=== PATIENT | male | born 1980 | race Caucasian/White ===

== ENCOUNTER 2021-04-02 08:14 | Inpatient (IN) | payer BC, SELFPAY ==
[2021-04-02] VITALS (7 sets, daily range): BP systolic 139–158; BP diastolic 92–101; PULSE 115–131; RESP 16–20; TEMP 36.6–37.4; O2SAT 96–100
--- NOTE | ~2021-04-02 | CT_ITS ---
EXAMINATION: CT abdomen pelvis w con DATE: 04/02/2021 10:19 INDICATION: Pancreatitis TECHNIQUE: Computed tomography (CT) of the abdomen and pelvis was performed with 100 cc Omnipaque 350 intravenous contrast. Automated exposure control and iterative reconstruction technique were employe d. Exam dose: 635.86 mGy-cm total exam DLP. COMPARISON: None. FINDINGS: The lung bases are clear. Normal heart size. No pericardial or pleural effusion. Small sliding hiatal hernia. There is splenomegaly, spleen measuring up to approximately 16 cm maximal vertical dimension. Varices are noted in the paraesophageal area and abdomen. Up to 2.7 x 4 cm cystic lesion of the body of the pancreas. There is prominent betsy-pancreatic and p araduodenal fluid. There are irregular branching fluid collections which are apparently dissecting into the periportal a beckie of the liver and caudate process, likely developing hepatic pseudocysts. There is thickening of the gastric wall and duodenum and duodenal mild dilatation. There is mild fluid and/or thickening along the left and right anterior pararenal fascia. The liver is otherwise unremarkable. Normal adrenal glands. 11 mm left renal cyst. The kidneys are otherwise unremarkable. No urinary tract calculus or hydrouret eronephrosis. The urinary bladder is distended but otherwise unremarkable. Normal caliber of the abdominal aorta. No intraperitoneal or retroperitoneal or pelvic mass lesion or adenopathy or ascites. Normal appendix. No bowel obstruction or intraperitoneal free air. Included skeletal structures are unremarkable. IMPRESSION: Pancreatitis with pancreatic pseudocyst and probable hepatic pseudocyst formation Splenomegaly Varices Reviewed, dictated and finalized at [facility]. Reviewed, dictated and finalized at [facility]. IMPRESSION: Pancreatitis with pancreatic pseudocyst and probable hepatic pseud ocyst formation Splenomegaly Varices
--- NOTE | ~2021-04-02 | XR_ITS ---
EXAMINATION: XR chest 2V DATE: 04/02/2021 08:48 INDICATION: Chest pain with shortness of breath TECHNIQUE: AP and lateral views of the chest are obtained. COMPARISON: None available FINDINGS: The lungs are free of acute opacities. There is no pleural effusion or pneumothorax. The ca rdiomediastinal silhouette is normal. The visualized bones and soft tissues are unremarkable. IMPRESSION: 1. No acute cardiopulmonary abnormality. Reviewed, dictated and finalized at [facility].
--- NOTE | ~2021-04-02 | CT_ITS ---
EXAMINATION: CT abdomen wo con EXAM DATE: 04/05/2021 16:44 INDICATION: Abd pain and distention. TECHNIQUE: Spiral CT of the abdomen was performed without contrast. Axial, coronal and sagittal hector ges of the abdomen were reviewed. The dose-length product (DLP) for this examination was 488.08 mGy- cm. The exposure was tailored according to patient size (auto mA exposure control), and iterative re construction (ASIR) was used as additional dose reduction technique. Comparison is made to prior exam ination from 04/02/2021. FINDINGS: Severe acute pancreatitis with extensive inflammation. Inflammation and fluid density surro unding the duodenum, which could be partially surrounded by developing pseudocyst. The pancreatic bod y hypodense region less well-visualized on this noncontrast study, measures about 3 x 4 cm, pseudocys t or pancreatic necrosis (involves approximately one third of pancreatic parenchyma). Again there is fluid density extending into the liver from the azucena, could be intrahepatic pseudocyst formation (bi liary dilation should also extend more peripherally). Severe narrowing of the portal vein was better seen on prior noncontrast study, but there are obvious extensive mesenteric portosystemic collaterals . There are findings could all be from pancreatitis, but can't exclude cholangiocarcinoma at the port a hepatis causing these findings. Borderline size retroperitoneal and numerous small mesenteric lymp h nodes probably reactive. The spleen, adrenal glands are unremarkable. Gallbladder is unremarkable. No biliary obstruction. There is no nephrolithiasis or hydronephrosis. There is expected amount of colonic stool. No free intraperitoneal gas. Trace pleural effusions and basilar subsegmental atelectasis. There are no osteoblastic or osteolytic lesions identified. Compared to 04/02, there has been interval progression in the retroperitoneal inflammation, developmen t of trace pleural effusions and bibasilar subsegmental atelectasis. IMPRESSION: 1. Progression of severe acute pancreatitis with hypodense region in its body, probably pseudocyst b ut could be sequela from pancreatic necrosis. 2. Liver findings at the azucena hepatus detailed above probably from inflammation. Cholangiocarcinoma not excludable. 3. Pseudocyst developing around duodenum. 4. Extensive mesenteric portosystemic shunting. Reviewed, dictated and finalized at location [facility]. IMPRESSION: 1. Progression of severe acute pancreatitis with hypodense region in its body, probably pseudocyst but could be sequela from pancreatic necrosis. 2. Liver findings at the azucena hepatus detailed above probably from inflammati on. Cholangiocarcinoma not excludable. 3. Pseudocyst developing around duodenum. 4. Extensive mesenteric portosystemic shunting.
--- NOTE | 2021-04-02 08:25 | ECG_ITS ---
Measurements Intervals [place] Rate: 113 P: 41 OK: 128 QRS: 84 QRSD: 104 T: 31 QT: 329 QTc: 452 Interpretive Statements SINUS TACHYCARDIA POSSIBLE LEFT ATRIAL ENLARGEMENT CANNOT RULE OUT SEPTAL INFARCT, AGE INDETERMINATE BASELINE WANDER- V2 ABNORMAL ECG Electronically Signed On 04-02-2021 9:05:52 CDT by Sebas Severino D.O.
[2021-04-02 08:50] LABS: Basophils Percent Auto 0.3 % (0.2-1.2); Eosinophils Percent Auto 0.2 % (0-4.4); Hematocrit 47.3 % (42.0-52.0); Hemoglobin 15.6 g/dL (14.0-18.0); Immature Granulocyte Absolute 0.06 K/mm3 (0.00-0.031); Immature Granulocyte Percent A 0.5 % (0-0.5); Lymphocytes Percent Auto 6.1 % (18.3-44.2); Mean Corpuscular Hemoglobin 27.8 pg (26-34); Mean Corpuscular Volume 84.3 fl (80-100); Mean Platelet Volume 11.7 fl (7.4-10.4); Monocytes Absolute Auto 0.6 K/mm3 (0.1-0.6); Monocytes Percent Auto 4.5 % (2.6-8.5); Neutrophils Absolute Auto 11.5 K/mm3 (1.3-6.7); Neutrophils Percent Auto 88.4 % (45.5-73.1); Platelet Count Result 174 k/mm3 (150-375); Red Blood Count 5.61 M/mm3 (4.6-6.20); Red Cell Distribution Width 12.6 % (11.5-14.5)
[2021-04-02 08:57] LABS: Amylase 110 U/L (30-110); Anion Gap 14 mmol/L (8-16); Blood Urea Nitrogen 8 mg/dL (9-20); Calcium 9.4 mg/dL (8.4-10.2); Carbon Dioxide 21 mmol/L (22-30); Chloride 98 mmol/L (98-107); Estimated CRCL calculation 165 ml/min; Estimated Glomerular Filt Rate > 60; Glucose 382 mg/dL (65-110); Lipase 593 U/L (23-300); Potassium 4.4 mmol/L (3.4-5.0); Sodium 133 mmol/L (137-145)
[2021-04-02 09:05] LABS: Prothrombin Time 12.7 Seconds (11.1-14.7)
[2021-04-02 09:06] LABS: Partial Thromboplastin Time 27.6 SECONDS (22.3-36.8)
[2021-04-02 09:09] LABS: Troponin I < 0.012 ng/mL (0.000-0.034)
[2021-04-02] MEDS: PANTOPRAZOLE SODIUM IV 40 MG VIAL IV PUSH ×2 (09:58→20:38)
[2021-04-02] MEDS: HYDROmorphone HCL INJ (*CRX) 1 MG/ML SYR IV PUSH ×5 (09:58→21:49)
[2021-04-02] MEDS: LACTATED RINGERS 1,000 ML 999 ML IV CONT (09:59)
[2021-04-02] MEDS: ONDANSETRON INJ 4 MG/2 ML VIAL IV PUSH (10:00)
[2021-04-02] MEDS: LORazepam INJ (*CRX) 2 MG/ML VIAL 1 MG IV PUSH (11:00)
--- NOTE | 2021-04-02 11:34 | ED.CHESTPAIN ---
HPI - Chest Pain General Chief Complaint: Chest Pain Stated Complaint: chest pain Time Seen by Provider: 04/02/21 09:11 Source: patient and RN notes reviewed Mode of arrival: ambulatory Limitations: no limitations History of Present Illness HPI narrative: Patient is a 41-year-old male who presents to emergency department for evaluation of GI discomfort with nausea history of pancreatitis notes that this is consistent with past flares denies vomiting diarrhea constipation other illnesses or complaints is attempted his home medications with minimal improvement took 2 hydrocodone from his mom with no improvement on arrival appears unclear Related Data Allergies Allergy/AdvReac Type Severity Reaction Status Date / Time No Known Drug Allergies Allergy Unknown Verified 08/30/18 15:34 Review of Systems Review of Systems: All systems reviewed & are unremarkable except as noted in HPI and below PMFSH Past Medical History Medical History (Updated 04/02/21 @ 11:38 by Jatinder Olson PA-C) Diabetes mellitus Pancreatitis Surgical History Surgical History (Updated 04/02/21 @ 11:35 by Jatinder Olson PA-C) History of endoscopy Family History Family History (Updated 04/09/16 @ 23:19 by DOCTOR UNKNOWN) Father Family history of diabetes mellitus in first degree relative Family history of heart disease in male family member before age 55 Grandparent Family history of heart disease in male family member before age 55 Diabetes mellitus Sibling Family history of heart disease in male family member before age 55 Patient's brother is Social History Social History Smoking status: Heavy tobacco smoker Second hand tobacco smoke exposure: Yes Alcohol intake: current Exam Narrative: Exam Narrative: GENERAL: Well-appearing, well-nourished, uncomfortable and in no acute distress. HEAD: Normocephalic, atraumatic. EYES: PERRLA and EOMI. ENT: Nares clear, no rhinorrhea or epistaxis. Mucous membranes moist. CHEST: Clear to auscultation. No respiratory distress. No wheezes rales or rhonchi HEART: Regular rate and rhythm. No murmur heard. Normal peripheral pulses. ABDOMEN: Soft, diffuse tenderness with voluntary guarding, nondistended EXTREMITIES: Normal range of motion. No edema. SKIN: Warm, dry, no rash. NEURO: No focal deficits. Alert and oriented x3. PSYCH: Normal mood and affect. Course Course Emergency Course: Patient evaluated hydrated treated in the ER hemodynamically stable afebrile nontoxic no emesis will be brought into the hospital for evaluation of his acute on chronic exacerbation of pancreatitis with GI consult admitted to the hospitalist service ABCs and vital signs intact and stable Consultations Consultation #1: Discussed the case with gastroenterology and the hospitalist have agreed to see and evaluate the patient Date: 04/02/21 Vital Signs Vital signs: Vital Signs Pulse Rate 115 H 04/02/21 08:21 Respiratory Rate 18 04/02/21 08:21 Blood Pressure 142/100 H 04/02/21 08:21 Pulse Oximetry 100 04/02/21 08:21 Pulse Rate 115 H 04/02/21 08:21 Respiratory Rate 18 04/02/21 08:21 Blood Pressure 142/100 H 04/02/21 08:21 Pulse Oximetry 100 04/02/21 08:21 MDM - Chest Pain MDM Narrative Medical decision making narrative: Patient with acute on chronic pancreatitis will be placed in hospital to be managed by the GI and hospitalist service felt appropriate for inpatient treatment Lab Data Result diagrams: 04/02/21 08:30 04/02/21 08:30 Labs: Lab Results 04/02/21 04/02/21 04/02/21 Range/Units 08:30 08:30 08:30 WBC 13.0 H (4.5-10.0) K/mm3 RBC 5.61 (4.6-6.20) M/mm3 Hgb 15.6 (14.0-18.0) g/dL Hct 47.3 (42.0-52.0) % MCV 84.3 (80-100) fl MCH 27.8 (26-34) pg MCHC 33.0 (32-36) g/dl RDW 12.6 (11.5-14.5) % Plt Count 174 (150-375) k/m
[2021-04-02] MEDS: SODIUM CHLORIDE 0.9% IV 1,000 ML 999 ML IV CONT (12:03)
--- NOTE | 2021-04-02 14:13 | PC.NURSE ---
Pt given ice chips
--- NOTE | 2021-04-02 14:53 | PM.IMHP ---
H&P: HPI History of Present Illness Date/Time: 04/02/21 14:53 Chief Complaint: Admitted under Observation Status Abd pain Narrative: The patient is a 41 year old man with a history of pancreatitis, who presented to the ER with symptoms of abdominal pain for 2 days with associated nausea and dry heaves. He reports having 7 different hospitalizations in the past for acute pancreatitis flares in the last 2.5 yrs and is normally hospitalized at [facility] in [place]. He has had an EGD in the past at [facility] by a GI specialist but denies any abnormalities from the testing. He does not have a GI specalist that he follows up with on the regular. Patient states he lives with chronic abdominal pain from his pancreatitis daily. When his symptoms become worse he usually takes fenofibrate and stops eating for 24 hours in usually that will help with his symptoms. Two days ago, he ate some chicken strips for dinner and began having worsening epigastric abdominal pain which radiates to his back and up into his chest at times. He tried his home remedies without any improvement of his symptoms. He even tried to take 10/325 mg hydrocodone from his mom without any improvement of his symptoms. he does report some chills associated with his pain and dry heaves. He decided to come to the emergency room for further evaluation of his abdominal pain. He denies any shortness of breath, cough, fever, diarrhea, constipation, leg swelling, calf pain, lightheadedness, dizziness, headache, or any other symptoms at this time. Code Status: Full Code POA: Alayna Allred PCP: Dr. Santos Review of Systems Review of Systems: All systems reviewed & are unremarkable except as noted in HPI and below [facility] Past Medical History Medical History (Updated 04/02/21 @ 16:36 by Radha Cook PA-C) Diabetes mellitus Hepatic steatosis Pancreatitis Surgical History Surgical History History of endoscopy Family History Family History Father Family history of diabetes mellitus in first degree relative Family history of heart disease in male family member before age 55 Grandparent Family history of heart disease in male family member before age 55 Diabetes mellitus Sibling Family history of heart disease in male family member before age 55 Patient's brother is Social History Social History (Updated 04/02/21 @ 16:07 by Radha Cook PA-C) Smoking packs per day: 1.5 Smoking cigarettes per day: 30.0 Years smoked: 20 Smoking pack-years: 30.00 Smoking status: Current every day smoker Tobacco type: cigarettes Second hand tobacco smoke exposure: Yes Alcohol intake: never Substance use: never Living arrangements: with family Occupation/Education: occupation 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 Appears anxious and uncomfortable. In no acute distress. Skin: No jaundice or cyanosis. Good skin turgor. Neck: Full range of motion. Supple. Respiratory: Lungs are clear to auscultation bilaterally. No wheezing, rales or rhonchi. No bony chest wall tenderness. Cardiovascular: The heart has a regular rhythm with a tachycardic rate without murmur. Lower extremitie
[2021-04-02 17:06] LABS: Glucose Point of Care 256 mg/dl (65-105)
[2021-04-02 17:11] LABS: Alanine Aminotransferase 16 U/L (4-50); Albumin Level 4.1 g/dL (3.5-5.1); Alkaline Phosphatase 117 U/L (38-126); Anion Gap 13 mmol/L (8-16); Aspartate Amino Transferase 15 U/L (17-59); Bilirubin,Total 0.9 mg/dL (0.2-1.3); Blood Urea Nitrogen 7 mg/dL (9-20); Calcium 9.3 mg/dL (8.4-10.2); Carbon Dioxide 21 mmol/L (22-30); Chloride 99 mmol/L (98-107); Estimated CRCL calculation 201 ml/min; Estimated Glomerular Filt Rate > 60; Glucose 246 mg/dL (65-110); Potassium 4.3 mmol/L (3.4-5.0); Sodium 133 mmol/L (137-145)
[2021-04-02] MEDS: NICOTINE (*PBKC) 21 MG PATCH 1 PATCH TRANSDERM (17:18)
[2021-04-02] MEDS: LACTATED RINGERS 1,000 ML 125 ML IV CONT (17:26)
[2021-04-02] MEDS: INSULIN ASPART (*BKC) 100 UNITS/ML SUB-Q (17:30)
[2021-04-02 17:38] LABS: Troponin I < 0.012 ng/mL (0.000-0.034)
--- NOTE | 2021-04-02 19:33 | ADMGEN ---
This patient, Michael Gomez, was admitted to [facility] Surg Room 328-01 at 1550.. Patient/family oriented to hospital policies and general routines including ID bracelet, bed and alarms, visiting hours, pain management, procedures, bathroom and other care routines, personal items, smoking policy, room service/diet, and visiting hours. Information on how to activate the Rapid Response Team has been discussed. Patient/Family are encouraged to report perceived risks to care and to ask questions if they do not understand what they are told or what they should do.
[2021-04-02 21:38] LABS: Glucose Point of Care 252 mg/dl (65-105)
[2021-04-03] MEDS: HYDROmorphone HCL INJ (*CRX) 1 MG/ML SYR IV PUSH ×7 (00:59→21:05)
[2021-04-03] MEDS: LACTATED RINGERS 1,000 ML 125 ML IV CONT ×2 (02:24→10:53)
[2021-04-03 06:00] VITALS: BP 136/88; PULSE 120; RESP 20; TEMP 36.6; O2SAT 98
[2021-04-03 06:34] LABS: Basophils Absolute Auto 0.1 K/mm3 (0.0-0.1); Basophils Percent Auto 0.3 % (0.2-1.2); Eosinophils Absolute Auto 0.1 K/mm3 (0-0.3); Eosinophils Percent Auto 0.6 % (0-4.4); Hematocrit 49.7 % (42.0-52.0); Hemoglobin 16.1 g/dL (14.0-18.0); Immature Granulocyte Absolute 0.05 K/mm3 (0.00-0.031); Immature Granulocyte Percent A 0.3 % (0-0.5); Lymphocytes Absolute Auto 1.13 K/mm3 (0.9-3.2); Lymphocytes Percent Auto 7.4 % (18.3-44.2); Mean Corpuscular HGB Conc 32.4 g/dl (32-36); Mean Corpuscular Hemoglobin 27.4 pg (26-34); Mean Corpuscular Volume 84.5 fl (80-100); Mean Platelet Volume 12.4 fl (7.4-10.4); Monocytes Percent Auto 6.4 % (2.6-8.5); Platelet Count Result 178 k/mm3 (150-375); Red Blood Count 5.88 M/mm3 (4.6-6.20); Red Cell Distribution Width 12.8 % (11.5-14.5); White Blood Count 15.2 K/mm3 (4.5-10.0)
[2021-04-03 06:44] LABS: Alanine Aminotransferase 14 U/L (4-50); Albumin Level 3.8 g/dL (3.5-5.1); Alkaline Phosphatase 103 U/L (38-126); Anion Gap 12 mmol/L (8-16); Aspartate Amino Transferase 15 U/L (17-59); Bilirubin,Total 1.1 mg/dL (0.2-1.3); Blood Urea Nitrogen 4 mg/dL (9-20); Calcium 9.1 mg/dL (8.4-10.2); Carbon Dioxide 22 mmol/L (22-30); Chloride 97 mmol/L (98-107); Cholesterol 204 mg/dL (0-200); Estimated CRCL calculation 201 ml/min; Estimated Glomerular Filt Rate > 60; Glucose 230 mg/dL (65-110); HDL Direct 35 mg/dL; Lipase 248 U/L (23-300); Sodium 131 mmol/L (137-145); Triglycerides 367 mg/dL (<150)
[2021-04-03 06:55] LABS: LDL Cholesterol Direct 76 mg/dL
[2021-04-03 07:09] LABS: Hemoglobin A1C 11.4 % (<5.7)
[2021-04-03 08:09] LABS: Glucose Point of Care 226 mg/dl (65-105)
[2021-04-03] MEDS: INSULIN ASPART (*BKC) 100 UNITS/ML SUB-Q (08:31)
[2021-04-03] MEDS: PANTOPRAZOLE SODIUM IV 40 MG VIAL IV PUSH ×2 (08:31→21:06)
[2021-04-03 12:23] LABS: Glucose Point of Care 182 mg/dl (65-105)
[2021-04-03] MEDS: NICOTINE (*PBKC) 21 MG PATCH 1 PATCH TRANSDERM (13:16)
--- NOTE | 2021-04-03 13:27 | PM.IMPN ---
Progress Note: A&P Assessment and Plan (1) Acute on chronic pancreatitis: Code(s): K85.90 - Acute pancreatitis without necrosis or infection, unspecified; K86.1 - Other chronic pancreatitis Status: Acute Assessment and Plan: Patient with acute on chronic pancreatitis episode which is been going on intermittently over the last 2 and half years. He has seen a GI specialist at [facility] in the past and had an EGD performed. will try and obtain medical records from his GI specialist. Lipase was minimally elevated On arrival at 593, and is within normal range today. Called radiologist who reported no gallbladder thickening, nondistended, no fluid around gallbladder, no significant duct dilatation to the biliary tree The patient is on metformin for diabetes but there is NO contraindication for this or findings that this causes pancreatitis or cause an exacerbation Our GI specialist Dr. Berman consulted on the patient, recommends getting information from [facility] with EGD from 08/2021. Patient will need referral for Endoscopic Ultrasound of Pancreas as an outpatient which he will set up. At this time he will be placed on a clear liquid diet, advance to Full liquid as tolerated. IV pain medications, antiemetics, ppi Continue monitoring his labs, lipase levels. Continue monitoring. (2) Gastric wall thickening: Code(s): K31.89 - Other diseases of stomach and duodenum Status: Acute Assessment and Plan: CT abdomen pelvis is showing some gastric wall thickening, thickening of the duodenum, duodenal mild dilation. This could be secondary to gastritis or duodenitis verses PUD. he will be placed on a IV pantoprazole twice daily GI has been consulted and their input is greatly appreciated. Recommends getting EGD results from [facility] from EGD from 08/2020. Continue monitoring (3) Dilation of duodenum: Code(s): K59.89 - Other specified functional intestinal disorders Status: Acute Assessment and Plan: see gastric rajput thickening above (4) Splenomegaly: Code(s): R16.1 - Splenomegaly, not elsewhere classified Status: Acute Assessment and Plan: patient was found to have splenomegaly on imaging. Patient's labs are within normal limits without any anemia, normal platelet count, no signs of elevated lymphocytes, he does not appear to be fluid overloaded at this time. other causes could be from liver cirrhosis, but on the CT scan it showed a normal appearing liver, but he did have signs of esophageal varices Dr. Berman believes that his chronic pancreatitis could be the cause of his esophageal varices and splenomegaly vs liver as the cause. Wonder if the patient has a history of Splenic Vein Thrombus. Will obtain records to find more information. Continue monitoring. (5) Esophageal varices: Code(s): I85.00 - Esophageal varices without bleeding Status: Acute Assessment and Plan: see under splenomegaly (6) Smoker: Code(s): F17.200 - Nicotine dependence, unspecified, uncomplicated Status: Acute Assessment and Plan: He was prescribed a nicotine patch. Smoking cessation given for 3 minutes. (7) Diabetes mellitus: Code(s): E11.9 - Type 2 diabetes mellitus without complications Status: Inactive Assessment and Plan: patient has a history of diabetes and is on metformin. His glucose was 300s when he came into the emergency room Hemoglobin A1 was 11.4%. Had a very in-depth conversation with the patient and needing to take better care of his health. I told him once he is eating
[2021-04-03 14:00] VITALS: BP 126/79; PULSE 126; RESP 20; TEMP 37.1; O2SAT 97
--- NOTE | 2021-04-03 14:29 | WPDGICN ---
Assessment and Plan Assessment and plan (1) Acute on chronic pancreatitis: Code(s): K85.90 - Acute pancreatitis without necrosis or infection, unspecified; K86.1 - Other chronic pancreatitis Status: Acute Assessment and Plan: this will be his 7th hospitalization for acute on chronic pancreatitis, apparently etiology was hypertriglyceridemia. CT scan reviewed and noted possible pancreatic pseudocyst (2.7 x 4 cm cystic lesion of the body of the pancreas), splenomegaly and possible varices- ? history of splenic vein thrombosis. No history of GIB and his platelets with hb normal value. Most likely all this related to pancreatitis. Will refer for endoscopic ultrasound to assess if indeed he has varices and also nature of pancreatic cyst. will follow clinical course, if he does not improve as expected then probably may need to be transferred to tertiary hospital npo for now, pain control (2) Pancreatic pseudocyst: Code(s): K86.3 - Pseudocyst of pancreas Status: Acute Assessment and Plan: eus pancreas as outpatient (3) Leukocytosis: Code(s): D72.829 - Elevated white blood cell count, unspecified Status: Acute Assessment and Plan: from pancreatitis, monitor (4) Uncontrolled diabetes mellitus: Code(s): E11.65 - Type 2 diabetes mellitus with hyperglycemia Status: Acute Assessment and Plan: a1c 11 affected by chronic pancreatitis also h/o high TG level (5) Splenomegaly: Code(s): R16.1 - Splenomegaly, not elsewhere classified Status: Acute (6) Gastric wall thickening: Code(s): K31.89 - Other diseases of stomach and duodenum Status: Acute (7) Hypertriglyceridemia: Code(s): E78.1 - Pure hyperglyceridemia Status: Acute Assessment and Plan: on fibrates, will need also niacin and bilingual spanish inbound sales consult for low fat diet GI Consult Note Consult date/time: 04/03/21 14:29 Reason for consult: acute on chronic pancreatitis HPI: Michael Gomez is a 41 year old male with chronic pancreatitis, he says that last 2 years had to be admitted total of 6 times because pancreatitis always at [facility], last time May this year. He says that his triglycerides in the past has been as high as 3500 and he has a prescription for fenofibrate but does not take it all the time because makes him sick. He denies GB problem or alcohol abuse. At baseline he has epigastric pain from pancreatitis but he says that has good tolerance to pain and only will go to hospital if needs iv narcotics. He is not taking pain meds at home in regular basis. 2 days ago he ate some chicken strips for dinner and had worsening epigastric abdominal pain which radiates to his back and up into his chest like previous episodes, also nausea. His mother had leftover of 10/325 mg hydrocodone but did not work. He had EGD 08/2019 at [facility] only mild gastritis (reviewed record). ER blood work lipase 590, bili 1, normal transaminases, a1c 11 with glucose 250's. Platelets and albumin normal. Admitted for acute on chronic pancreatitis and he is npo, still with pain. CT scan reviewed, showed pancreatitis with pancreatic pseudocyst and probable hepatic pseudocyst formation, splenomegaly 16 cm, varices. Liver normal otherwise. Review of Systems Constitutional: Constitutional: Denies fatigue Eyes: Eyes: Reports no additional eye complaints ENT: Reports Normal hearing present Cardiovascular: Cardiovascular: Denies chest pain Respiratory: Respiratory: Denies dyspnea Gastrointestinal: Gastrointestinal: Reports abdominal pain and Reports nausea Genitourinary: Genitourinary: Denies dysuria Musculoskeletal: Musculoskeletal: Denies neck pain Integumentary/Breasts: Skin/Breast: Denies dry skin Neurologic: Reports system reviewed and no additional complaints, except as documented Psychiatric: Psychiatric: Reports no additional psychiatric complaints PMFSH Past Medical History Medica
[2021-04-03 17:56] LABS: Glucose Point of Care 185 mg/dl (65-105)
[2021-04-03] MEDS: ONDANSETRON INJ 4 MG/2 ML VIAL IV PUSH (21:05)
[2021-04-03 21:44] VITALS: BP 146/87; PULSE 126; RESP 20; TEMP 37.2; O2SAT 97
[2021-04-03 22:58] LABS: Glucose Point of Care 205 mg/dl (65-105)
[2021-04-04] MEDS: HYDROmorphone HCL INJ (*CRX) 1 MG/ML SYR IV PUSH ×8 (00:15→22:03)
[2021-04-04] MEDS: LACTATED RINGERS 1,000 ML 125 ML IV CONT ×2 (00:19→13:00)
[2021-04-04 05:37] VITALS: BP 139/86; PULSE 116; RESP 18; TEMP 36.8; O2SAT 96
[2021-04-04 07:25] LABS: Alanine Aminotransferase 10 U/L (4-50); Albumin Level 3.5 g/dL (3.5-5.1); Alkaline Phosphatase 93 U/L (38-126); Anion Gap 12 mmol/L (8-16); Aspartate Amino Transferase 15 U/L (17-59); Bilirubin,Total 0.8 mg/dL (0.2-1.3); Blood Urea Nitrogen 3 mg/dL (9-20); Calcium 9.1 mg/dL (8.4-10.2); Carbon Dioxide 25 mmol/L (22-30); Chloride 94 mmol/L (98-107); Estimated CRCL calculation 165 ml/min; Estimated Glomerular Filt Rate > 60; Glucose 194 mg/dL (65-110); Potassium 4.2 mmol/L (3.4-5.0); Sodium 131 mmol/L (137-145)
[2021-04-04 08:29] LABS: Glucose Point of Care 200 mg/dl (65-105)
[2021-04-04] MEDS: NICOTINE (*PBKC) 21 MG PATCH 1 PATCH TRANSDERM (09:41)
[2021-04-04] MEDS: PANTOPRAZOLE SODIUM IV 40 MG VIAL IV PUSH ×2 (09:42→20:40)
[2021-04-04 11:04] VITALS: O2SAT 97
[2021-04-04 12:25] LABS: Glucose Point of Care 195 mg/dl (65-105)
--- NOTE | 2021-04-04 12:51 | PM.IMPN ---
Progress Note: A&P Assessment and Plan (1) Acute on chronic pancreatitis: Code(s): K85.90 - Acute pancreatitis without necrosis or infection, unspecified; K86.1 - Other chronic pancreatitis Status: Acute Assessment and Plan: chronic pancreatitis, x2 year Followed by GI at [facility] in the past and had an EGD performed medical records from GI specialist pending Lipase on admission 593-->248 on 04/03 CT of A/P-->showing some gastric wall thickening, thickening of the duodenum, duodenal mild dilation. This could be secondary to gastritis or duodenitis verses PUD GI consulted, Dr. Berman, recommends getting information from [place] with EGD from 08/2020 Patient will need referral for Endoscopic Ultrasound of Pancreas as an outpatient which he will set up Continue on clears, advance to Full liquid as tolerated IV pain medications, antiemetics, ppi Continue to monitor (2) Gastric wall thickening: Code(s): K31.89 - Other diseases of stomach and duodenum Status: Acute Assessment and Plan: CT of A/P-->showing some gastric wall thickening, thickening of the duodenum, duodenal mild dilation. Continue with PPI GI following, recommendations appreciated EGD results from [place] from EGD from 08/2020 pending (3) Dilation of duodenum: Code(s): K59.89 - Other specified functional intestinal disorders Status: Acute Assessment and Plan: see gastric rajput thickening above (4) Splenomegaly: Code(s): R16.1 - Splenomegaly, not elsewhere classified Status: Acute Assessment and Plan: CT of A/P showed splenomegaly No anemia Dr. Berman believes that his chronic pancreatitis could be the cause of his esophageal varices and splenomegaly vs liver as the cause (5) Esophageal varices: Code(s): I85.00 - Esophageal varices without bleeding Status: Acute Assessment and Plan: see above (6) Smoker: Code(s): F17.200 - Nicotine dependence, unspecified, uncomplicated Status: Acute Assessment and Plan: Cessation advised Continue NicoDerm (7) Diabetes mellitus: Code(s): E11.9 - Type 2 diabetes mellitus without complications Status: Inactive Assessment and Plan: Uncontrolled Hgb A1 11.4% Consulted DM Educator [facility] [place] Monitor (8) Chest pain: Code(s): R07.9 - Chest pain, unspecified Status: Acute Assessment and Plan: Resolved Likely 2/2 GERD, gastritis and duodenitis which is with the CT scan is suggesting Troponin x2 wnl ECG -->ST with some signs of some ST changes at V2-V4 CXR neg Continue monitoring on Telemetry. (9) Leukocytosis: Code(s): D72.829 - Elevated white blood cell count, unspecified Status: Acute Assessment and Plan: Likely reactive No acute signs of any infection at this time on CT abdomen or chest x-ray Continue IVF Monitor (10) Hepatic steatosis: Code(s): K76.0 - Fatty (change of) liver, not elsewhere classified Status: Acute Assessment and Plan: Chronic Fenofibrate PRN for Pancreatitis flares Lipid panel unremarkable, other than elevated Triglycerides Additional Plan SCD for DVT prophylaxis due to Varices on CT scan. Subjective Date/time seen: 04/04/21 12:51 Interval history: pt reports abdominal pain with eating 04/21 Review of Systems Review of Systems: All systems reviewed & are unremarkable except as noted in HP
[2021-04-04 14:00] VITALS: BP 144/83; PULSE 120; RESP 14; TEMP 37.3; O2SAT 98
--- NOTE | 2021-04-04 14:01 | WPDGIPROGNO ---
Progress Note: A&P Assessment and Plan (1) Acute on chronic pancreatitis: Code(s): K85.90 - Acute pancreatitis without necrosis or infection, unspecified; K86.1 - Other chronic pancreatitis Status: Acute Assessment and Plan: cl diet as tolerated multiple hospitalization for similar problem wonder if etiology is uncontrolled DM with hypertriglyceridemia we will refer for endoscopic ultrasound of pancreas as outpatient (cystic lesion and possible varices)- no history liver disease, he has normal liver enzymes, platelets and hb (2) Uncontrolled diabetes mellitus: Code(s): E11.65 - Type 2 diabetes mellitus with hyperglycemia Status: Acute (3) Hypertriglyceridemia: Code(s): E78.1 - Pure hyperglyceridemia Status: Acute Assessment and Plan: on meds, 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 He also says that at baseline has loose stools. Review of Systems Review of Systems: All systems reviewed & are unremarkable except as noted in HPI and below Exam Const: General: no acute distress HENMT: General nose exam: Normal nares present Eyes: Sclera: sclerae normal Neck: Neck: supple Resp: Auscultation: clear to auscultation bilaterally Cardio: Rate: regular rate GI: Inspection: distended GI Palp: Yes Tenderness to palpation present (GI) (epigastric, no rebound) Auscultation: normal bowel sounds Skin: General skin exam: normal color Neuro: Speech: normal speech Motor exam (neuro): Normal motor muscle tone present throughout Extrem: General: normal to inspection Psych: Mental Status: mental status grossly normal Objective Data Vital Signs Vital Signs: Vital Signs - 24 hr 04/03/21 21:44 04/04/21 05:37 04/04/21 11:04 Temperature 98.9 F 98.3 F Pulse Rate 126 H 116 H Respiratory Rate 20 18 Blood Pressure 146/87 H 139/86 Pulse Oximetry 97 96 97 Intake/Output Intake/Output: Intake & Output 04/01/21 04/02/21 04/03/21 04/04/21 23:59 23:59 23:59 23:59 Intake Total 1999 3310 1160 Output Total Balance 1999 3306 1160 Meds/Results Medications: Active Medications Generic Name Dose Route Start Last Admin Trade Name Freq PRN Reason Stop Dose Admin Dextrose 12.5 gm 04/02/21 11:43 Dextrose 50% 25 Gm/50 Ml Syringe IV PUSH PRN PRN Hypoglycemia Protocol Dextrose 12.5 gm 04/02/21 15:03 Dextrose 50% 25 Gm/50 Ml Syringe IV PUSH PRN PRN Hypoglycemia Protocol Glucagon 1 mg 04/02/21 15:03 Glucagon For Inj 1 Mg Vial IM PRN PRN Hypoglycemia Protocol Glucose 15 gm 04/02/21 15:03 Glucose Oral Gel 15 Gm Of Glucse In 37.5 Gm Tube PO PRN PRN Hypoglycemia Protocol Hydralazine HCl 10 mg 04/02/21 16:37 Hydralazine Hcl 20 Mg/Ml Vial IV PUSH Q8H PRN Blood Pressure - High Hydromorphone HCl 1 mg 04/02/21 11:43 04/04/21 12:54 Hydromorphone Hcl Inj (*Crx) 1 Mg/Ml Syr IV PUSH 1 mg Q3HR PRN Administration Pain Rated 7-10 Lactated Ringer's 1,000 mls @ 75 mls/hr 04/02/21 11:45 04/04/21 13:00 Lr - Lactated Ringers Iv IV CONT 125 mls/hr .[id number] AMBER Administration Dextrose 1,000 mls @ 100 mls/hr 04/02/21 15:03 Dextrose 5% 1,000 Ml IVPB PRN PRN Hypoglycemia Protocol Insulin Aspart 2 - 5 units
[2021-04-04 17:43] LABS: Glucose Point of Care 179 mg/dl (65-105)
[2021-04-04] MEDS: LIPASE/AMYLASE/PROTEASE 12,000 UNITS CAP 1 CAP PO (18:52)
[2021-04-04 20:22] LABS: Glucose Point of Care 188 mg/dl (65-105)
[2021-04-04 21:54] VITALS: BP 138/87; PULSE 113; RESP 18; TEMP 36.9; O2SAT 97
[2021-04-05] MEDS: LACTATED RINGERS 1,000 ML 125 ML IV CONT ×2 (01:07→13:14)
[2021-04-05] MEDS: HYDROmorphone HCL INJ (*CRX) 1 MG/ML SYR IV PUSH ×8 (01:07→22:21)
[2021-04-05 05:38] VITALS: BP 140/80; PULSE 102; RESP 18; TEMP 36.6; O2SAT 96
[2021-04-05 08:37] LABS: Glucose Point of Care 187 mg/dl (65-105)
[2021-04-05 09:35] LABS: Hematocrit 36.9 % (42.0-52.0); Hemoglobin 12.1 g/dL (14.0-18.0); Mean Corpuscular HGB Conc 32.8 g/dl (32-36); Mean Corpuscular Hemoglobin 27.6 pg (26-34); Mean Corpuscular Volume 84.2 fl (80-100); Mean Platelet Volume 12.2 fl (7.4-10.4); Platelet Count Result 137 k/mm3 (150-375); Red Blood Count 4.38 M/mm3 (4.6-6.20); Red Cell Distribution Width 12.6 % (11.5-14.5); White Blood Count 7.3 K/mm3 (4.5-10.0)
[2021-04-05 09:40] LABS: Anion Gap 11 mmol/L (8-16); Blood Urea Nitrogen 3 mg/dL (9-20); Calcium 8.8 mg/dL (8.4-10.2); Carbon Dioxide 26 mmol/L (22-30); Chloride 97 mmol/L (98-107); Estimated CRCL calculation 201 ml/min; Estimated Glomerular Filt Rate > 60; Glucose 240 mg/dL (65-110); Potassium 3.6 mmol/L (3.4-5.0); Sodium 134 mmol/L (137-145)
[2021-04-05] MEDS: LIPASE/AMYLASE/PROTEASE 12,000 UNITS CAP 1 CAP PO ×3 (10:13→16:20)
[2021-04-05] MEDS: NICOTINE (*PBKC) 21 MG PATCH 1 PATCH TRANSDERM (10:14)
[2021-04-05] MEDS: PANTOPRAZOLE SODIUM IV 40 MG VIAL IV PUSH ×2 (10:14→21:40)
[2021-04-05 12:11] LABS: Glucose Point of Care 288 mg/dl (65-105)
[2021-04-05] MEDS: INSULIN ASPART (*BKC) 100 UNITS/ML SUB-Q ×2 (13:09→18:12)
[2021-04-05 14:00] VITALS: BP 136/83; PULSE 108; RESP 18; TEMP 36.4; O2SAT 97
--- NOTE | 2021-04-05 14:24 | WPDGIPROGNO ---
Progress Note: A&P Assessment and Plan (1) Acute on chronic pancreatitis: Code(s): K85.90 - Acute pancreatitis without necrosis or infection, unspecified; K86.1 - Other chronic pancreatitis Status: Acute Assessment and Plan: less pain today after had full liquid diet multiple hospitalization for similar problem wonder if etiology is uncontrolled DM with hypertriglyceridemia plan is endoscopic ultrasound of pancreas as outpatient (cystic lesion and possible varices)- no history liver disease, he has normal liver enzymes, platelets and hb (2) Uncontrolled diabetes mellitus: Code(s): E11.65 - Type 2 diabetes mellitus with hyperglycemia Status: Acute Assessment and Plan: by primary team (3) Hypertriglyceridemia: Code(s): E78.1 - Pure hyperglyceridemia Status: Acute Assessment and Plan: on meds, will need oim consultant (4) Pancreatic pseudocyst: Code(s): K86.3 - Pseudocyst of pancreas Status: Acute Assessment and Plan: eus pancreas as outpatient (5) Splenomegaly: Code(s): R16.1 - Splenomegaly, not elsewhere classified Status: Acute (6) Exocrine pancreatic insufficiency: Code(s): K86.81 - Exocrine pancreatic insufficiency Status: Acute Assessment and Plan: started on pancreatic enzymes with meals Subjective Date/time seen: 04/05/21 14:24 Interval history: less pain after eating, he is feeling better today Review of Systems Review of Systems: All systems reviewed & are unremarkable except as noted in HPI and below Exam Const: General: comfortable and no acute distress HENMT: General nose exam: Normal nares present Eyes: Sclera: sclerae normal Neck: Neck: supple Resp: Auscultation: clear to auscultation bilaterally Cardio: Rate: regular rate GI: GI Palp: Yes Soft to palpation, Yes Tenderness to palpation present (GI) (less tender today, he is comfortable) and No Guarding due to palpation present (GI) Auscultation: normal bowel sounds Skin: General skin exam: normal color Neuro: Speech: normal speech Motor exam (neuro): Normal motor muscle tone present throughout Extrem: General: normal to inspection Psych: Mental Status: mental status grossly normal Objective Data Vital Signs Vital Signs: Vital Signs - 24 hr 04/04/21 21:54 04/05/21 05:38 Temperature 98.4 F 97.8 F Pulse Rate 113 H 102 H Respiratory Rate 18 18 Blood Pressure 138/87 140/80 Pulse Oximetry 97 96 Intake/Output Intake/Output: Intake & Output 04/02/21 04/03/21 04/04/21 04/05/21 23:59 23:59 23:59 23:59 Intake Total 1999 3310 3520 1330 Output Total 4 Balance 1999 3306 3520 1330 Meds/Results Medications: Active Medications Generic Name Dose Route Start Last Admin Trade Name Freq PRN Reason Stop Dose Admin Lipase/Protease/Amylase 1 cap 04/04/21 17:00 04/05/21 13:09 Lipase/Amylase/Protease 12,000 Units Cap PO 1 cap TIDWM AMBER Administration Dextrose 12.5 gm 04/02/21 11:43 Dextrose 50% 25 Gm/50 Ml Syringe IV PUSH PRN PRN Hypoglycemia Protocol Dextrose 12.5 gm 04/02/21 15:03 Dextrose 50% 25 Gm/50 Ml Syringe IV PUSH PRN PRN Hypoglycemia Protocol Glucagon 1 mg 04/02/21 15:03 Glucagon For Inj 1 Mg Vial IM PRN PRN Hypoglycemia Protocol Glucose 15 gm 04/02/21 15:03 Glucose Oral Gel 15 Gm Of Glucse In 37.5 Gm Tube PO PRN PRN Hypoglycemia Protocol Hydralazine HCl 10 mg 04/02/21 16:37 Hydralazine Hcl 20 Mg/Ml Vial IV PUSH Q8H PRN Blood Pressure - High Hydromorphone HCl 1 mg 04/02/21 11:43 04/05/21 13:08 Hydromorphone Hcl Inj (*Crx) 1 Mg/Ml Syr IV PUSH 1 mg Q3HR PRN Administration Pain Rated 7-10 Lactated Ringer's 1,000 mls @ 75 mls/hr 04/02/21 11:45 04/05/21 13:14 Lr - Lactated Ringers Iv IV CONT 125 mls/hr .[id number] AMBER Administration Dextrose 1,000 mls @ 100 mls/hr 04/02/21 1
--- NOTE | 2021-04-05 15:02 | P.PN_ITS ---
Progress Note: A&P Assessment and Plan (1) Acute on chronic pancreatitis: Code(s): K85.90 - Acute pancreatitis without necrosis or infection, unspecified; K86.1 - Other chronic pancreatitis Status: Acute Assessment and Plan: * possibly secondary to uncontrolled diabetes with hypertriglyceridemia * chronic pancreatitis, x2 year * Followed by GI at [facility] in the past and had an EGD performed * medical records from GI specialist pending * Lipase on admission 593-->248 on 04/03 * CT of A/P-->showing some gastric wall thickening, thickening of the duodenum, duodenal mild dilation. This could be secondary to gastritis or duodenitis verses PUD * GI consulted, Dr. Berman, recommends getting information from [place] with EGD from 08/2020 * Patient will need referral for Endoscopic Ultrasound of Pancreas as an outpatient which he will set up * IV pain medications, antiemetics, ppi * Continue to monitor (2) Gastric wall thickening: Code(s): K31.89 - Other diseases of stomach and duodenum Status: Acute Assessment and Plan: * CT of A/P-->showing some gastric wall thickening, thickening of the duodenum, duodenal mild dilation. * Continue with PPI * GI following, recommendations appreciated * EGD results from [place] from EGD from 08/2020 pending (3) Dilation of duodenum: Code(s): K59.89 - Other specified functional intestinal disorders Status: Acute Assessment and Plan: * see gastric rajput thickening above (4) Splenomegaly: Code(s): R16.1 - Splenomegaly, not elsewhere classified Status: Acute Assessment and Plan: * CT of A/P showed splenomegaly * No anemia * Dr. Berman believes that his chronic pancreatitis could be the cause of his esophageal varices and splenomegaly vs liver as the cause (5) Esophageal varices: Code(s): I85.00 - Esophageal varices without bleeding Status: Acute Assessment and Plan: see above (6) Smoker: Code(s): F17.200 - Nicotine dependence, unspecified, uncomplicated Status: Acute Assessment and Plan: * Cessation advised * Continue NicoDerm (7) Diabetes mellitus: Code(s): E11.9 - Type 2 diabetes mellitus without complications Status: Inactive Assessment and Plan: * Uncontrolled * Hgb A1 11.4% * Consulted DM Educator * Accuchecks, SSI change sliding scale from low to high * Monitor * will adjust medication as needed (8) Chest pain: Code(s): R07.9 - Chest pain, unspecified Status: Acute Assessment and Plan: * Resolved * Likely 2/2 GERD, gastritis and duodenitis which is with the CT scan is suggesting * Troponin x2 wnl * ECG -->ST with some signs of some ST changes at V2-V4 * CXR neg * Continue monitoring on Telemetry. (9) Leukocytosis: Code(s): D72.829 - Elevated white blood cell count, unspecified Status: Acute Assessment and Plan: * resolved * wbc 13.0>15.2>7.3 * Likely reactive * No acute signs of any infection at this time on CT abdomen or chest x-ray * Continue IVF * Monitor (10) Hepatic steatosis: Code(s): K76.0 - Fatty (change of) liver, not elsewhere classified Status: Acute Assessment and Plan: * Chronic * Fenofibrate PRN for Pancreatitis flares * Lipid panel unremarkable, other than elevated Triglycerides Additional Plan SCD for DVT prophylaxis due to Varices
--- NOTE | 2021-04-05 15:02 | WPDPN ---
Progress Note: A&P Assessment and Plan (1) Acute on chronic pancreatitis: Code(s): K85.90 - Acute pancreatitis without necrosis or infection, unspecified; K86.1 - Other chronic pancreatitis Status: Acute Assessment and Plan: possibly secondary to uncontrolled diabetes with hypertriglyceridemia chronic pancreatitis, x2 year Followed by GI at [facility] in the past and had an EGD performed medical records from GI specialist pending Lipase on admission 593-->248 on 04/03 CT of A/P-->showing some gastric wall thickening, thickening of the duodenum, duodenal mild dilation. This could be secondary to gastritis or duodenitis verses PUD GI consulted, Dr. Berman, recommends getting information from [place] with EGD from 08/2020 Patient will need referral for Endoscopic Ultrasound of Pancreas as an outpatient which he will set up IV pain medications, antiemetics, ppi Continue to monitor (2) Gastric wall thickening: Code(s): K31.89 - Other diseases of stomach and duodenum Status: Acute Assessment and Plan: CT of A/P-->showing some gastric wall thickening, thickening of the duodenum, duodenal mild dilation. Continue with PPI GI following, recommendations appreciated EGD results from [place] from EGD from 08/2020 pending (3) Dilation of duodenum: Code(s): K59.89 - Other specified functional intestinal disorders Status: Acute Assessment and Plan: see gastric rajput thickening above (4) Splenomegaly: Code(s): R16.1 - Splenomegaly, not elsewhere classified Status: Acute Assessment and Plan: CT of A/P showed splenomegaly No anemia Dr. Berman believes that his chronic pancreatitis could be the cause of his esophageal varices and splenomegaly vs liver as the cause (5) Esophageal varices: Code(s): I85.00 - Esophageal varices without bleeding Status: Acute Assessment and Plan: see above (6) Smoker: Code(s): F17.200 - Nicotine dependence, unspecified, uncomplicated Status: Acute Assessment and Plan: Cessation advised Continue NicoDerm (7) Diabetes mellitus: Code(s): E11.9 - Type 2 diabetes mellitus without complications Status: Inactive Assessment and Plan: Uncontrolled Hgb A1 11.4% Consulted DM Educator Accuchecks, SSI change sliding scale from low to high Monitor will adjust medication as needed (8) Chest pain: Code(s): R07.9 - Chest pain, unspecified Status: Acute Assessment and Plan: Resolved Likely 2/2 GERD, gastritis and duodenitis which is with the CT scan is suggesting Troponin x2 wnl ECG -->ST with some signs of some ST changes at V2-V4 CXR neg Continue monitoring on Telemetry. (9) Leukocytosis: Code(s): D72.829 - Elevated white blood cell count, unspecified Status: Acute Assessment and Plan: resolved wbc 13.0>15.2>7.3 Likely reactive No acute signs of any infection at this time on CT abdomen or chest x-ray Continue IVF Monitor (10) Hepatic steatosis: Code(s): K76.0 - Fatty (change of) liver, not elsewhere classified Status: Acute Assessment and Plan: Chronic Fenofibrate PRN for Pancreatitis flares Lipid panel unremarkable, other than elevated Triglycerides Additional Plan SCD for DVT prophylaxis due to Varices on CT scan. Subjective Date/time seen: 04/05/21 15:02 patient has no complaints today she did note that he was able to tolerate his clear liquid diet. patient is hesitant advancing his diet. he believes that if his advanced his pain medication will decrease. I informed patient we would keep his pain medication as is but it will eventually need to decrease as his paining improves. Patient denies cp, sob, palpitation, diarrhea, constipation, lightheadness, headache, dizziness or chills and fevers. Review of Systems
[2021-04-05 17:35] LABS: Glucose Point of Care 203 mg/dl (65-105)
[2021-04-05] MEDS: MAGNESIUM HYDROXIDE SUSP 30 ML UDC PO (18:12)
[2021-04-05] MEDS: DOCUSATE SODIUM 100 MG CAPSULE PO (21:39)
[2021-04-05 21:49] LABS: Glucose Point of Care 188 mg/dl (65-105)
[2021-04-05 22:00] VITALS: BP 151/87; PULSE 99; RESP 16; TEMP 37.1; O2SAT 98
[2021-04-06] MEDS: HYDROmorphone HCL INJ (*CRX) 1 MG/ML SYR IV PUSH ×3 (01:42→07:47)
[2021-04-06] MEDS: LACTATED RINGERS 1,000 ML 125 ML IV CONT (01:46)
[2021-04-06 06:00] VITALS: BP 151/87; PULSE 95; RESP 18; TEMP 36.4; O2SAT 100
[2021-04-06 06:52] LABS: Hemoglobin 11.8 g/dL (14.0-18.0); Mean Corpuscular HGB Conc 32.8 g/dl (32-36); Mean Corpuscular Hemoglobin 27.8 pg (26-34); Mean Corpuscular Volume 84.7 fl (80-100); Mean Platelet Volume 12.3 fl (7.4-10.4); Platelet Count Result 165 k/mm3 (150-375); Red Blood Count 4.25 M/mm3 (4.6-6.20); Red Cell Distribution Width 12.5 % (11.5-14.5); White Blood Count 4.6 K/mm3 (4.5-10.0)
[2021-04-06 07:14] LABS: Alanine Aminotransferase 10 U/L (4-50); Albumin Level 3.2 g/dL (3.5-5.1); Alkaline Phosphatase 87 U/L (38-126); Anion Gap 7 mmol/L (8-16); Aspartate Amino Transferase 17 U/L (17-59); Bilirubin,Total 0.4 mg/dL (0.2-1.3); Blood Urea Nitrogen 3 mg/dL (9-20); Calcium 8.5 mg/dL (8.4-10.2); Carbon Dioxide 29 mmol/L (22-30); Chloride 98 mmol/L (98-107); Estimated CRCL calculation 201 ml/min; Estimated Glomerular Filt Rate > 60; Glucose 219 mg/dL (65-110); Lipase 107 U/L (23-300); Magnesium 1.8 mg/dL (1.6-2.3); Potassium 3.5 mmol/L (3.4-5.0); Sodium 134 mmol/L (137-145)
[2021-04-06] MEDS: NICOTINE (*PBKC) 21 MG PATCH 1 PATCH TRANSDERM (08:02)
[2021-04-06] MEDS: ONDANSETRON INJ 4 MG/2 ML VIAL IV PUSH (08:02)
[2021-04-06] MEDS: PANTOPRAZOLE SODIUM IV 40 MG VIAL IV PUSH (08:02)
[2021-04-06] MEDS: LIPASE/AMYLASE/PROTEASE 12,000 UNITS CAP 1 CAP PO (08:03)
[2021-04-06] MEDS: DOCUSATE SODIUM 100 MG CAPSULE PO (08:03)
[2021-04-06 08:11] LABS: Glucose Point of Care 294 mg/dl (65-105)
[2021-04-06] MEDS: INSULIN ASPART (*BKC) 100 UNITS/ML SUB-Q ×2 (08:13→10:40)
[2021-04-06 10:23] LABS: Glucose Point of Care 213 mg/dl (65-105)
[2021-04-06] MEDS: BISACODYL 5 MG TABLET EC PO (10:38)
--- NOTE | 2021-04-06 11:12 | P.DS_ITS ---
DS: Admitting Diagnosis Admitting Diagnosis acute on chronic pancreatitis DS: Discharge Diagnosis Discharge Diagnosis (1) Acute on chronic pancreatitis: Code(s): K85.90 - Acute pancreatitis without necrosis or infection, unspecified; K86.1 - Other chronic pancreatitis Status: Acute Assessment and Plan: * possibly secondary to uncontrolled diabetes with hypertriglyceridemia * chronic pancreatitis, x2 year * Followed by GI at [facility] in the past and had an EGD performed * medical records from GI specialist pending * Lipase on admission 593-->248 * lipase is down to 107 today * CT of A/P-->showing some gastric wall thickening, thickening of the duodenum, duodenal mild dilation. This could be secondary to gastritis or duodenitis verses PUD * GI consulted, Dr. Berman, recommends getting information from [place] with EGD from 08/2020 * Patient will need referral for Endoscopic Ultrasound of Pancreas as an out patient which he will set up * IV pain medications, antiemetics, ppi * Continue to monitor patient is able to tolerated diet has been educated about a low fat diet (2) Gastric wall thickening: Code(s): K31.89 - Other diseases of stomach and duodenum Status: Acute Assessment and Plan: * CT of A/P-->showing some gastric wall thickening, thickening of the duodenum, duodenal mild dilation. * Continue with PPI * GI following, recommendations appreciated * EGD results from [place] from EGD from 08/2020 pending (3) Dilation of duodenum: Code(s): K59.89 - Other specified functional intestinal disorders Status: Acute Assessment and Plan: * see gastric rajput thickening above (4) Splenomegaly: Code(s): R16.1 - Splenomegaly, not elsewhere classified Status: Acute Assessment and Plan: * CT of A/P showed splenomegaly * No anemia * Dr. Berman believes that his chronic pancreatitis could be the cause of his esophageal varices and splenomegaly vs liver as the cause (5) Esophageal varices: Code(s): I85.00 - Esophageal varices without bleeding Status: Acute Assessment and Plan: see above (6) Smoker: Code(s): F17.200 - Nicotine dependence, unspecified, uncomplicated Status: Acute Assessment and Plan: * Cessation advised * Continue NicoDerm cessation has been educated advised (7) Diabetes mellitus: Code(s): E11.9 - Type 2 diabetes mellitus without complications Status: Inactive Assessment and Plan: * Uncontrolled * Hgb A1 11.4% * Consulted DM Educator * Accuchecks, SSI change sliding scale from low to high * Monitor * will adjust medication as needed (8) Chest pain: Code(s): R07.9 - Chest pain, unspecified Status: Acute Assessment and Plan: * Resolved * Likely 2/2 GERD, gastritis and duodenitis which is with the CT scan is sug gesting * Troponin x2 wnl * ECG -->ST with some signs of some ST changes at V2-V4 * CXR neg * Continue monitoring on Telemetry. (9) Leukocytosis: Code(s): D72.829 - Elevated white blood cell count, unspecified Status: Acute Assessment and Plan: * resolved * wbc 13.0>15.2>7.3 * Likely reactive * No acute signs of any infection at this time on CT abdomen or chest x-ray * Continue IVF * Monitor (10) Hepatic steatosis: Code(s): K76.0 - Fatty (change of) liver, not elsewhere classified Status: Acute
--- NOTE | 2021-04-06 11:12 | PM.DS ---
DS: Admitting Diagnosis Admitting Diagnosis acute on chronic pancreatitis DS: Discharge Diagnosis Discharge Diagnosis (1) Acute on chronic pancreatitis: Code(s): K85.90 - Acute pancreatitis without necrosis or infection, unspecified; K86.1 - Other chronic pancreatitis Status: Acute Assessment and Plan: possibly secondary to uncontrolled diabetes with hypertriglyceridemia chronic pancreatitis, x2 year Followed by GI at [facility] in the past and had an EGD performed medical records from GI specialist pending Lipase on admission 593-->248 lipase is down to [address] of A/P-->showing some gastric wall thickening, thickening of the duodenum, duodenal mild dilation. This could be secondary to gastritis or duodenitis verses PUD GI consulted, Dr. Berman, recommends getting information from [place] with EGD from 08/2020 Patient will need referral for Endoscopic Ultrasound of Pancreas as an outpatient which he will set up IV pain medications, antiemetics, ppi Continue to monitor patient is able to tolerated diet has been educated about a low fat diet (2) Gastric wall thickening: Code(s): K31.89 - Other diseases of stomach and duodenum Status: Acute Assessment and Plan: CT of A/P-->showing some gastric wall thickening, thickening of the duodenum, duodenal mild dilation. Continue with PPI GI following, recommendations appreciated EGD results from [place] from EGD from 08/2020 pending (3) Dilation of duodenum: Code(s): K59.89 - Other specified functional intestinal disorders Status: Acute Assessment and Plan: see gastric rajput thickening above (4) Splenomegaly: Code(s): R16.1 - Splenomegaly, not elsewhere classified Status: Acute Assessment and Plan: CT of A/P showed splenomegaly No anemia Dr. Berman believes that his chronic pancreatitis could be the cause of his esophageal varices and splenomegaly vs liver as the cause (5) Esophageal varices: Code(s): I85.00 - Esophageal varices without bleeding Status: Acute Assessment and Plan: see above (6) Smoker: Code(s): F17.200 - Nicotine dependence, unspecified, uncomplicated Status: Acute Assessment and Plan: Cessation advised Continue NicoDerm cessation has been educated advised (7) Diabetes mellitus: Code(s): E11.9 - Type 2 diabetes mellitus without complications Status: Inactive Assessment and Plan: Uncontrolled Hgb A1 11.4% Consulted DM Educator Accuchecks, SSI change sliding scale from low to high Monitor will adjust medication as needed (8) Chest pain: Code(s): R07.9 - Chest pain, unspecified Status: Acute Assessment and Plan: Resolved Likely 2/2 GERD, gastritis and duodenitis which is with the CT scan is suggesting Troponin x2 wnl ECG -->ST with some signs of some ST changes at V2-V4 CXR neg Continue monitoring on Telemetry. (9) Leukocytosis: Code(s): D72.829 - Elevated white blood cell count, unspecified Status: Acute Assessment and Plan: resolved wbc 13.0>15.2>7.3 Likely reactive No acute signs of any infection at this time on CT abdomen or chest x-ray Continue IVF Monitor (10) Hepatic steatosis: Code(s): K76.0 - Fatty (change of) liver, not elsewhere classified Status: Acute Assessment and Plan: Chronic Fenofibrate PRN for Pancreatitis flares Lipid panel unremarkable, other than elevated Triglycerides DS: Summary Hospital Course Hospital Course: The patient is a 41 year old man with a history of pancreatitis, who presented to the ER with symptoms of abdominal pain for 2 days with associated nausea and dry heaves. upon admission patient had a lipase greater than 500. Patient was treated with fluids which then brought his lipase down to 107. Patient still does have steven
--- NOTE | 2021-04-06 11:33 | PC.NURSE ---
Patient signed out AMA. Taras Tejada NP was with the patient during this time. Patient IV removed. AMA form signed.
== END 2021-04-06 11:30 | disposition left against medical advice (07) | DRG 282 ==
LOC: ANHED 11:38 → ANH3MEDSUR 16:30
PROVIDERS: Emergency Medicine Emergency Medical Services; Nurse Practitioner; Admitting Provider Internal Medicine; Emergency Provider Emergency Medicine; PCP Internal Medicine Gastroenterology; Visit Provider Physician Assistant
DX: K85.90 Acute pancreatitis without necrosis or infection, unspecified (principal); K86.1 Other chronic pancreatitis; R16.1 Splenomegaly, not elsewhere classified; I85.00 Esophageal varices without bleeding; K21.9 Gastro-esophageal reflux disease without esophagitis; K29.70 Gastritis, unspecified, without bleeding; K29.80 Duodenitis without bleeding; K59.89 Other specified functional intestinal disorders; K86.3 Pseudocyst of pancreas; E11.65 Type 2 diabetes mellitus with hyperglycemia; D72.829 Elevated white blood cell count, unspecified; K76.0 Fatty (change of) liver, not elsewhere classified; F17.210 Nicotine dependence, cigarettes, uncomplicated
CPT/HCPCS: 36415; 71046; 74150; 74177; 80048; 80053; 80061; 82150; 82948; 83036; 83690; 83735; 84484; 85025; 85027; 85610; 85730; 93005; 96361; 96374; 96375; 96376; 99285; A9270; C9113; J0131; J1170; J1815; J2060; J2405; J7030; J7120; Q9967

== ENCOUNTER 2022-03-03 18:46 | Inpatient (IN) | payer BC, SELFPAY ==
[2022-03-03] VITALS (19 sets, daily range): BP systolic 146–165; BP diastolic 76–96; PULSE 109–121; RESP 15–31; TEMP 36.6; O2SAT 99–100
--- NOTE | ~2022-03-03 | CT_ITS ---
EXAMINATION: CT abdomen pelvis w con DATE: 03/03/2022 20:54 INDICATION: abd pain TECHNIQUE: Computed tomography (CT) of the abdomen and pelvis was performed with 100 mL Omnipaque-300 intravenous contrast. Automated exposure control and iterative reconstruction technique were employe d. The dose-length product was 1150.00 mGy-cm. COMPARISON: 04/05/2021, 04/02/2021. FINDINGS: Lower thorax: Minimal right basilar atelectasis. Mild coronary artery calcification. Liver: Fatty infiltrated. Mildly enlarged. Severe narrowing of the main portal vein. Nonocclusive thr ombus present at the confluence of the splenic and superior mesenteric veins as well as the proximal main portal vein. Splenic vein appears to be chronically thrombosed. Biliary/Gallbladder: Mildly enlarged, without stones. No biliary duct dilatation. Pancreas: Very little normal enhancing parenchyma remains, with fluid density collection in the regio n of the pancreatic head and extensive surrounding inflammatory change and fluid. Spleen: Normal. Adrenals:No mass. Kidneys: Left simple cyst. No obstructing calculus. Mild right hydronephrosis, likely reactive. GI tract: Dilated stomach, filled by fluid, with fluid reflux into the distal esophagus. Extensive ir regular wall edema of the duodenum with possible breakdown in the wall in the second portion of the d uodenum. Marked colonic wall edema at the hepatic flexure, with surrounding fluid. Very long, mildly dilated appendix, not significantly changed. Mesentery/Peritoneum: Right upper quadrant fluid and inflammatory change. Extensive upper abdominal c ollaterals. Retroperitoneum: No mass. Atherosclerotic abdominal aortic and/or arterial calcifications. Pelvis: Pelvic organs are within normal limits. Soft Tissues: Soft tissues and body wall unremarkable. Bones: No acute osseous finding. IMPRESSION: Severe acute on chronic necrotizing pancreatitis. Severe duodenitis with possible erosion/perforation of the second portion of the duodenum and gastric outlet obstruction. Inflammatory involvement of th e hepatic flexure. Severe narrowing of the main portal vein with nonocclusive portal venous thrombosi s and evidence of portal venous hypertension. Reviewed, dictated and finalized at location K. IMPRESSION: Severe acute on chronic necrotizing pancreatitis. Severe duodenitis with possib le erosion/perforation of the second portion of the duodenum and gastric outlet obstruction. Inflammatory involvement of the hepatic flexure. Severe narrowing of the main portal vein with nonocclusive portal venous thrombosis and evidenc e of portal venous hypertension.
--- NOTE | ~2022-03-03 | XR_ITS ---
EXAMINATION: XR chest 1V portable Exam Date/Time: 03/03/2022 19:08 CDT HISTORY: N/V,GENERALIZED CP,SOB,ABD PAIN,PANCREATITIS,DKA,DIABETES Comparison: None available. RESULT: Lines, tubes, and devices: 04/02/2021. Lungs and pleura: Clear. Cardiomediastinal silhouette: Stable cardiomediastinal silhouette. Other: No acute osseous or upper abdominal finding. IMPRESSION: No acute cardiopulmonary process. Reviewed, dictated and finalized at location K.
--- NOTE | ~2022-03-03 | XR_ITS ---
EXAMINATION: XR UGI water soluble wo kub, XR abdomen/kub 1V DATE: 03/04/2022 17:54 INDICATION: Suspected duodenal perforation on prior CT. TECHNIQUE: 1. Water-soluble contrast was administered through the patient's existing nasogastric tube. A total o f 20 fluoroscopic spot radiographs images were obtained of the stomach and proximal small bowel. Fluo roscopy exposure time was minutes. 2. A pair of 30 minute delayed portable AP supine views of the abdomen and pelvis were obtained COMPARISON: None. FINDINGS: There is a gastric tube tip in proximal side port in the body of the stomach. There was relatively de layed passage of contrast beyond the gastric outlet with the majority of contrast still present withi n the stomach on the images obtained 1 hour and 10 minutes following the initial contrast administrat ion. There is a relatively narrow lumen of the first second and third portions of the duodenum with t hickened mucosal pattern suggestive of edema in the setting of duodenitis. Is a normal mucosal fold p attern in the more distal proximal jejunum. No evident extraluminal extravasation of contrast appreci ated. IMPRESSION: 1. Diffuse stricture of the duodenum with mucosal fold thickening which consistent with the appearanc e on prior CT and suggestive of duodenitis with mural edema likely secondary to adjacent pancreatitis . No evident extraluminal extravasation of contrast to suggest leak at the stomach or proximal small bowel. Reviewed, dictated and finalized at location A. IMPRESSION: 1. Diffuse stricture of the duodenum with mucosal fold thickening which consist ent with the appearance on prior CT and suggestive of duodenitis with mural verna ma likely secondary to adjacent pancreatitis. No evident extraluminal extravasa tion of contrast to suggest leak at the stomach or proximal small bowel.
--- NOTE | ~2022-03-03 | US_ITS ---
EXAMINATION: US abdomen limited DATE: 03/04/2022 15:21 INDICATION: Portal vein thrombosis. Pancreatitis. TECHNIQUE: Multiple grayscale and Doppler ultrasound images of the abdomen were obtained. COMPARISON: CT abdomen and pelvis 03/03/2022 FINDINGS: The pancreas is indistinct with heterogeneous echogenicity, consistent with pancreatitis. T he liver is normal without focal lesion. There is normal flow in main portal vein. The gallbladder is distended. No visible gallstones. Gallbladder wall thickening is noted. The common duct is not visua lized. There is a small volume of perihepatic ascites. IMPRESSION: 1. Normal flow in main portal vein. Note that ultrasound has poor sensitivity for nonocclusive portal vein thrombosis. 2. Necrotizing pancreatitis better seen by CT. 3. Distended gallbladder with gallbladder wall thickening, likely secondary to common duct stricture and inflammation from pancreatitis. 4. Small volume of perihepatic ascites. Reviewed, dictated and finalized at location A. IMPRESSION: 1. Normal flow in main portal vein. Note that ultrasound has poor sensitivity f or nonocclusive portal vein thrombosis. 2. Necrotizing pancreatitis better seen by CT. 3. Distended gallbladder with gallbladder wall thickening, likely secondary to common duct stricture and inflammation from pancreatitis. 4. Small volume of perihepatic ascites.
--- NOTE | ~2022-03-03 | XR_ITS ---
EXAM: XR abdomen NG/feed tube insert DATE: 03/03/2022 22:24 HISTORY: NG placement . COMPARISON: CT abdomen pelvis, same date. FINDINGS: NG tube terminates with its tip over the expected location of the stomach and the side port at the GE junction. Clear lung bases. No gas-filled dilated bowel. Colonic wall thickening at the he patic flexure. Regional bones and soft tissues normal for age. IMPRESSION: Shallow positioned NG tube, consider 5 cm advancement. Reviewed, dictated and finalized at location K.
--- NOTE | ~2022-03-03 | XR_ITS ---
EXAMINATION: XR abdomen NG/feed tube insert DATE: 03/04/2022 10:03 INDICATION: Nasogastric tube placement. TECHNIQUE: An upright view of the abdomen was obtained. COMPARISON: CT abdomen and pelvis 03/03/2022 FINDINGS: The lower abdomen is excluded. The nasogastric tube tip is in the stomach. IMPRESSION: 1. Nasogastric tube tip in the stomach. Reviewed, dictated and finalized at location A.
[2022-03-03 18:53] LABS: Glucose Point of Care 271 mg/dl (65-105)
--- NOTE | 2022-03-03 19:00 | ECG_ITS ---
Measurements Intervals [place] Rate: 112 P: 44 GA: 156 QRS: 35 QRSD: 110 T: 7 QT: 325 QTc: 445 Interpretive Statements SINUS TACHYCARDIA LEFT ATRIAL ENLARGEMENT [-0.15mV P-WAVE IN V1/V2] POSSIBLE ANTERIOR MYOCARDIAL INFARCTION , OLD [30 ms Q WAVE IN V3/V4, OR R < 0.2 mV IN V4] COMPARED TO ECG 04/02/2021 08:24:38 NO SIGNIFICANT CHANGES Electronically Signed On 03-05-2022 16:01:47 CDT by Gasper Sena M.D.
[2022-03-03 19:06] LABS: Alveolar/Arterial O2 Gradient 6.2 mmHg; Base Excess ABG -24.5 mEq/l (+/-2.0); Fractional Inspired Oxygen 21 %; HCO3 ABG 3.8 mEq/l (22.0-26.0); Methemoglobin ABG 0.4 %THb (0-1.5); Oxygen Content ABG 19.3 %vol (16.0-22.0); Oxygen Saturation ABG 97.1 % (95.0-100.0); Oxyhemoglobin 95.3 % THb (90.0-100.0); PO2 ABG 126.9 mmHg (80.0-100.0); PO2 FiO2 Ratio Arterial Blood 6.04 %; Reduced Hemoglobin 2.3 %THb (0-5.0); Total Hemoglobin 14.3 g/dL (12.0-18.0)
[2022-03-03 19:07] LABS: pH ABG 7.056 (7.350-7.450)
[2022-03-03 19:08] LABS: Device ROOM AIR; Modified Allen's Test Pass; PCO2 ABG 13.9 mmHg (35.0-45.0); Site Drawn LEFT RADIAL
[2022-03-03] MEDS: SODIUM CHLORIDE 0.9% IV 1,000 ML 999 ML IV CONT ×3 (19:21→20:58)
[2022-03-03] MEDS: ONDANSETRON INJ 4 MG/2 ML VIAL IV PUSH (19:24)
--- NOTE | 2022-03-03 19:28 | ED.GENADULT ---
HPI - General Adult General Chief complaint: Recheck/Abnormal Lab/Rx Stated complaint: ?pancreatitis/DKA - left AMA from [facility] Time Seen by Provider: 03/03/22 18:56 Source: RN notes reviewed History of Present Illness HPI narrative: Patient presents emergency department from home for abdominal pain. Patient states he has a history of nonalcoholic pancreatitis states that he has been having diffuse abdominal pain associated with numerous episodes of nausea vomiting over the past several days. Patient also states he is a diabetic and his sugars been running high and feels he is in DKA. He denies any fevers or chills chest pain shortness of breath or any other symptoms. Patient states he was admitted at [facility] for pancreatitis and DKA and left AMA 2 days ago Related Data Home Medications Medication Instructions Recorded Confirmed fenofibrate 1 tab-cap PO DAILY 04/04/21 04/04/21 metformin 500 mg PO BID 04/04/21 04/04/21 Allergies Allergy/AdvReac Type Severity Reaction Status Date / Time No Known Drug Allergies Allergy Unknown Verified 08/30/18 15:34 Review of Systems Review of Systems: Gen.: Denies fevers or chills ENT: Denies congestion Respiratory: Denies shortness of breath or cough CV: Denies chest pain or palpitations GI: See HPI denies burning, urgency, frequency or hematuria Musculoskeletal: Denies back pain or muscle pain Neuro: Denies numbness, tingling, weakness or focal weakness Skin: Denies rash Endocrine: Reports diabetes mellitus Except as documented, all other systems reviewed and negative [facility] Past Medical History Medical History Diabetes mellitus Exocrine pancreatic insufficiency Hepatic steatosis Hypertriglyceridemia Pancreatic pseudocyst Pancreatitis Uncontrolled diabetes mellitus Surgical History Surgical History History of endoscopy Family History Family History Father Family history of diabetes mellitus in first degree relative Family history of heart disease in male family member before age 55 Grandparent Family history of heart disease in male family member before age 55 Diabetes mellitus Sibling Family history of heart disease in male family member before age 55 Patient's brother is Social History Social History Smoking packs per day: 1.5 Smoking cigarettes per day: 30.0 Years smoked: 20 Smoking pack-years: 30.00 Smoking status: Current every day smoker Tobacco type: cigarettes Second hand tobacco smoke exposure: Yes Alcohol intake: never Substance use: never Additional occupation/education comments: [employer] Gender identity (if verbalized by the patient): Male Spiritual care concerns: No Exam Narrative: APPEARANCE: Ill in appearance resting in bed Eyes: Scleral icterus, PERRL HEENT: Normocephalic, atraumatic, oral mucosa dry RESPIRATORY: No respiratory distress, clear to auscultation bilaterally with no rhonchi wheezing or rales CARDIOVASCULAR: Tachycardic and regular s murmur ABDOMINAL: Distended and diffusely tender palpation no rebound or guarding MUSCULOSKELETAl: Moves all extremities. No clubbing, cyanosis or edema. NEURO: Awake and alert. Following commands, speech normal, no focal deficits SKIN:: Warm, dry. Normal Color PSYCHIATRIC: Normal affect/mood Course Course Emergency Course: Called and discussed with Dr. Grissom for ICU agrees with admission to the ICU if surgery is in agreement to follow he recommends holding anticoagulation at this time secondary the patient's possible erosion/perforation and duodenum and request patient be switched to D5 half-normal saline for fluid Discussed with Dr. Washburn for general surgery presentation work-up we discussed lab results and CT sc
[2022-03-03 19:31] LABS: Hematocrit 44.7 % (42.0-52.0); Hemoglobin 14.1 g/dL (14.0-18.0); Mean Corpuscular HGB Conc 31.5 g/dl (32-36); Mean Corpuscular Hemoglobin 28.5 pg (26-34); Mean Corpuscular Volume 90.3 fl (80-100); Mean Platelet Volume 10.5 fl (7.4-10.4); Platelet Count Result 359 k/mm3 (150-375); Red Blood Count 4.95 M/mm3 (4.6-6.20); Red Cell Distribution Width 15.9 % (11.5-14.5); White Blood Count 33.8 K/mm3 (4.5-10.0)
[2022-03-03 19:51] LABS: INR 1.4; Partial Thromboplastin Time 30.6 SECONDS (22.3-36.8); Prothrombin Time 16.5 Seconds (11.1-14.7)
[2022-03-03 19:51] LABS: Band Neutrophils Percent 7 % (0-6); Lymphocytes Absolute Manual 3.71 K/mm3 (1.1-4.5); Lymphocytes Percent Manual 11 % (18-44); Metamyelocytes Percent 2 %; Monocytes Percent Manual 8 % (3-9); Neutrophils Percent Manual 72 % (46-73); Platelet Estimate Adequate (Adequate); Total Cells Counted 100
[2022-03-03 20:03] LABS: Appearance Urine Clear (Clear); Bilirubin Urine 2+ (Negative); Blood Urine 1+ (Negative); Color Urine Yellow (Yellow); Glucose Urine UA 2+ mg/dL (Negative); Ketones Urine 4+ mg/dL (Negative); Leukocyte Esterase Ur Negative LEU/UL (Negative); Nitrate Urine Negative (Negative); Protein Urine 2+ mg/dL (Negative); Specific Grav Ur >= 1.030 (1.001-1.035); Urobilinogen Urine 0.2 mg/dL (<2.0); pH Urine 5.5 (5.0-9.0)
[2022-03-03 20:11] LABS: Alanine Aminotransferase 83 U/L (6-50); Albumin Level 4.3 g/dL (3.5-5.1); Alkaline Phosphatase 319 U/L (38-126); Bilirubin,Total 6.9 mg/dL (0.2-1.3); Blood Urea Nitrogen 10 mg/dL (9-20); Calcium 10.7 mg/dL (8.4-10.2); Carbon Dioxide < 5 mmol/L (22-30); Chloride 106 mmol/L (98-107); Estimated CRCL calculation 121 ml/min; Estimated Glomerular Filt Rate > 60; Glucose 272 mg/dL (65-110); Lipase 113 U/L (23-300); Magnesium 2.3 mg/dL (1.6-2.3); Phosphorus 3.7 mg/dL (2.5-4.5); Potassium 4.3 mmol/L (3.4-5.0); Sodium 137 mmol/L (137-145)
[2022-03-03 20:12] LABS: Add Urine Microscopic? YES; Mucus Urine Rare /lpf; Squamous Epithelial Cell Urine Occasional /hpf (Few); WBC Urine 0-3 /hpf
[2022-03-03 20:27] LABS: Aspartate Amino Transferase 50 U/L (17-59)
[2022-03-03 20:27] LABS: Amphetamine Screen Urine Negative (Negative); Barbiturate Screen Urine Negative (Negative); Benzodiazepines Screen Urine Negative (Negative); Cannabinoid Screen Urine Negative (Negative); Cocaine Screen Urine Negative (Negative); Methadone Screen Urine Negative (Negative); Opiate Screen Urine Positive (Negative); Phencyclidine Screen Urine Negative (Negative)
[2022-03-03 20:28] LABS: Ethanol < 10 mg/dL (<10)
[2022-03-03 20:49] LABS: Lactic Acid Reflex 1.3 mmol/L (0.7-2.0)
[2022-03-03 20:55] LABS: Beta-Hydroxybutyrate/Acetoacetate 9.05 mmol/L (0.02-0.27)
[2022-03-03] MEDS: MORPHINE SULFATE (*CRX) 4 MG/ML INJ IV PUSH (21:01)
[2022-03-03] MEDS: PANTOPRAZOLE SODIUM IV 40 MG VIAL IV PUSH ×2 (21:45→22:25)
[2022-03-03 22:15] LABS: Glucose Point of Care 246 mg/dl (65-105)
[2022-03-03] MEDS: INSULIN HUMAN REGULAR (*BKC) 100 UNITS in SODIUM CHLORIDE 0.9% IV 99 ML IV CONT (22:24)
--- NOTE | 2022-03-03 22:42 | PM.IMHP ---
H&P: HPI History of Present Illness Date/Time: 03/03/22 22:42 Chief Complaint: Nausea, vomiting, abdominal pain Narrative: 42-year-old male with past medical history of uncontrolled diabetes mellitus, chronic pancreatitis/pancreatic insufficiency hypertriglyceridemia and GERD who presented to the ER from home via private vehicle due to nausea vomiting and abdominal pain. The patient says has been having several weeks of epigastric abdominal pain radiating through to the back. He went to [facility] 8 days ago and was hospitalized for acute pancreatitis. He was NPO and he stated that they were not doing anything for him. They had waited several days to do an EGD in on the day he was post have a EGD he states that they did not perform the exam after he had waited several hours so he decided to leave against medical advice. He left the hospital 2 days ago. He initially was using some Zofran that he had left over from a prior prescription but ran out of this and less than half a day. States since that time he has had greater than 40 episodes of vomiting per day. He reports that occasionally emesis will be black in color. When he arrived to the ER patient had CT of the abdomen and pelvis which demonstrated gastric outlet obstruction with a dilated stomach. An NG was placed and he had rapid drainage of 3 L of orange tinged gastric output. He reports severe abdominal pain that is aching in nature all the time with occasional sharp stabbing pain associated with it. The pain occasionally will radiate up into his chest. pain is worse if he tries to eat anything. his pain has improved since he received 4 mg of morphine and has had the NG placed. He reports that he has had persistent shortness of breath since onset of his symptoms. Denies any cough or congestion. His fiancee was at bedside states that his eyes have been yellow for the last 2 days. He reports that he has been having small amounts of soft stool. He has not noticed any hematochezia or melena. He has been having numbness tingling and burning in his feet. He denies prior history of diabetic neuropathy. He has not been following up with an eye doctor for evaluation of diabetic eye disease. Patient denies history of cirrhosis. He did have prior CT scans which suggested possible esophageal varices. He was post have an outpatient endoscopic ultrasound. It is unclear if he ever had this done. No sooner than the patient arrived to the ICU he deliberately pulled out his NG. He is refusing to have the NG replaced. Source of information is review of past medical records, patient report and fikeithe's report. Patient did provide permission to discuss his medical condition in front of his fiancee. Review of Systems Review of Systems: 12 systems were reviewed with pertinent positives and negatives per HPI. Except as documented in the HPI, all other systems were reviewed and are negative. [facility] Past Medical History Medical History (Updated 03/04/22 @ 02:14 by Ruba Briscoe DO) Continuous tobacco abuse Diabetes mellitus Diabetic peripheral neuropathy Exocrine pancreatic insufficiency Hepatic steatosis Hypertriglyceridemia Pancreatic pseudocyst Pancreatitis With numerous admissions for recurrent pancreatitis thought to be related to hypertriglyceridemia and uncontrolled diabetes Splenomegaly Uncontrolled diabetes mellitus A1c 11.4 04/03/2021 Surgical History Surgical History History of endoscopy Family History Family History (Updated 03/04/22 @ 01:55 by Ruba Briscoe DO) Father Family history of diabetes mellitus in first degree relative Family history of heart disease in male family member before age 55 Grandparent Family history of heart disease in male family member before age 55 Diabetes mellitus Sibling Family history of heart disease in male family member before age 55 Pat
[2022-03-03] MEDS: SODIUM CHLORIDE 0.9% IV 50 ML 200 ML (22:46)
[2022-03-03] MEDS: PROMETHAZINE HCL 25 MG/ML AMPUL 12.5 MG IV PUSH (22:46)
[2022-03-03 23:30] LABS: Glucose Point of Care 258 mg/dl (65-105)
--- NOTE | 2022-03-03 23:33 | PC.NURSE ---
3L gastric content removed out of NG tube immediately.
[2022-03-04] VITALS (19 sets, daily range): BP systolic 120–157; BP diastolic 61–94; PULSE 96–118; RESP 14–24; TEMP 36.6–37.2; O2SAT 94–100; BMI 28.2; BMI 28.5
[2022-03-04 00:13] LABS: Glucose Point of Care 231 mg/dl (65-105)
[2022-03-04] MEDS: KCL 20 MEQ/D5/0.45% SOD CHL 1,000 ML 150 ML IV CONT ×2 (01:17→07:57)
[2022-03-04 01:45] LABS: Glucose Point of Care 237 mg/dl (65-105)
[2022-03-04 02:32] LABS: Glucose Point of Care 201 mg/dl (65-105)
[2022-03-04 03:04] LABS: Anion Gap 20 mmol/L (8-16); Blood Urea Nitrogen 9 mg/dL (9-20); Calcium 9.8 mg/dL (8.4-10.2); Carbon Dioxide 6 mmol/L (22-30); Chloride 111 mmol/L (98-107); Estimated CRCL calculation 103 ml/min; Estimated Glomerular Filt Rate > 60; Glucose 235 mg/dL (65-110); Sodium 137 mmol/L (137-145)
[2022-03-04 03:44] LABS: Glucose Point of Care 198 mg/dl (65-105)
--- NOTE | 2022-03-04 03:45 | PC.NURSE ---
This patient, Michael Gomez, was admitted to Intensive Care Unit-10 at 0100. Patient/family oriented to hospital policies and general routines including ID bracelet, bed and alarms, visiting hours, pain management, procedures, bathroom and other care routines, personal items, smoking policy, room service/diet, and visiting hours. Information on how to activate the Rapid Response Team has been discussed. Patient/Family are encouraged to report perceived risks to care and to ask questions if they do not understand what they are told or what they should do.
[2022-03-04 04:31] LABS: Glucose Point of Care 192 mg/dl (65-105)
[2022-03-04 05:20] LABS: Basophils Absolute Auto 0.1 K/mm3 (0.0-0.1); Basophils Percent Auto 0.8 % (0.2-1.2); Eosinophils Percent Auto 0.1 % (0-4.4); Hematocrit 38.2 % (42.0-52.0); Hemoglobin 12.2 g/dL (14.0-18.0); Immature Granulocyte Absolute 0.54 K/mm3 (0.00-0.031); Immature Granulocyte Percent A 4.4 % (0-0.5); Lymphocytes Absolute Auto 0.66 K/mm3 (0.9-3.2); Lymphocytes Percent Auto 5.4 % (18.3-44.2); Mean Corpuscular HGB Conc 31.9 g/dl (32-36); Mean Corpuscular Hemoglobin 28.6 pg (26-34); Mean Corpuscular Volume 89.7 fl (80-100); Mean Platelet Volume 10.1 fl (7.4-10.4); Monocytes Absolute Auto 0.7 K/mm3 (0.1-0.6); Monocytes Percent Auto 5.4 % (2.6-8.5); Neutrophils Absolute Auto 10.2 K/mm3 (1.3-6.7); Neutrophils Percent Auto 83.9 % (45.5-73.1); Platelet Count Result 165 k/mm3 (150-375); Red Blood Count 4.26 M/mm3 (4.6-6.20); Red Cell Distribution Width 15.7 % (11.5-14.5); White Blood Count 12.2 K/mm3 (4.5-10.0)
[2022-03-04 05:26] LABS: Glucose Point of Care 192 mg/dl (65-105)
[2022-03-04 05:34] LABS: Alanine Aminotransferase 63 U/L (6-50); Albumin Level 3.3 g/dL (3.5-5.1); Alkaline Phosphatase 233 U/L (38-126); Anion Gap 15 mmol/L (8-16); Aspartate Amino Transferase 52 U/L (17-59); Bilirubin Direct 2.3 mg/dL (0-0.3); Bilirubin,Total 5.9 mg/dL (0.2-1.3); Blood Urea Nitrogen 8 mg/dL (9-20); Calcium 9.3 mg/dL (8.4-10.2); Carbon Dioxide 8 mmol/L (22-30); Chloride 112 mmol/L (98-107); Estimated CRCL calculation 135 ml/min; Estimated Glomerular Filt Rate > 60; Glucose 191 mg/dL (65-110); Potassium 3.1 mmol/L (3.4-5.0); Sodium 135 mmol/L (137-145)
[2022-03-04] MEDS: MORPHINE SULFATE (*CRX) 4 MG/ML INJ IV PUSH (06:10)
[2022-03-04 07:24] LABS: Glucose Point of Care 192 mg/dl (65-105)
[2022-03-04 07:24] LABS: Glucose Point of Care 197 mg/dl (65-105)
--- NOTE | 2022-03-04 07:32 | PC.NURSE ---
Ng remains out. Pt educated on purpose of NG including relief of abd pain. Continues to refuse NG. Pt sleeping between interruptions. Reports that pain is still 8/10 and requesting Dilaudid Morphine never works for me.
[2022-03-04] MEDS: INSULIN HUMAN REGULAR (*BKC) 100 UNITS in SODIUM CHLORIDE 0.9% IV 99 ML 14.5 UNITS IV CONT (07:55)
[2022-03-04] MEDS: POTASSIUM CHLORIDE INJ 40 MEQ in SODIUM CHLORIDE 0.9% IV 500 ML 130 MEQ IVPB ×2 (07:57→12:26)
--- NOTE | 2022-03-04 08:31 | PC.NURSE ---
Informed patient that Dr. Grissom has ordered an NG tube placement to help with stomach pain. (Pt has Ng tube in ED with 3L out and pain had subsided. On arrival to floor pt had pulled out tube and complained of stomach pain, per night RN report). Pt states F that. I'm not doing that. I will straight up walk right out of this bitch. Dr. Grissom notified.
[2022-03-04 08:58] LABS: Glucose Point of Care 172 mg/dl (65-105)
[2022-03-04 09:07] LABS: Anion Gap 10 mmol/L (8-16); Blood Urea Nitrogen 6 mg/dL (9-20); Calcium 8.9 mg/dL (8.4-10.2); Carbon Dioxide 13 mmol/L (22-30); Chloride 112 mmol/L (98-107); Estimated CRCL calculation 158 ml/min; Estimated Glomerular Filt Rate > 60; Glucose 181 mg/dL (65-110); Potassium 2.9 mmol/L (3.4-5.0); Sodium 135 mmol/L (137-145); Triglycerides 313 mg/dL (<150)
[2022-03-04] MEDS: HYDROmorphone HCL INJ (*CRX) 1 MG/ML SYR IV PUSH ×4 (09:39→23:50)
[2022-03-04] MEDS: ONDANSETRON INJ 4 MG/2 ML VIAL IV PUSH ×3 (09:52→23:49)
[2022-03-04 10:24] LABS: Glucose Point of Care 192 mg/dl (65-105)
[2022-03-04 11:04] LABS: Glucose Point of Care 231 mg/dl (65-105)
--- NOTE | 2022-03-04 11:35 | WPDCNINT ---
Assessment and Plan Assessment and plan (1) Necrotizing pancreatitis: Code(s): K85.91 - Acute pancreatitis with uninfected necrosis, unspecified Status: Acute Assessment and Plan: CT scans shows acute on chronic necrotizing pancreatitis. His lipase level is normal NPO Pain control NG tube to [facility] and General surgery has been consulted (2) DKA (diabetic ketoacidosis): Code(s): E11.10 - Type 2 diabetes mellitus with ketoacidosis without coma Status: Acute Assessment and Plan: Patient received IV fluid bolus and is currently on IV fluid infusion Insulin infusion was temporally on hold due to low potassium which is being replaced Repeat BMP reviewed and anion gap is closed. I will transition him to subcutaneous insulin and will give a Lantus Change fluids to LR Continue potassium replacement (3) Acute duodenitis: Code(s): K29.80 - Duodenitis without bleeding Status: Acute Assessment and Plan: Continue PPI infusion GI consulted and patient will likely need EGD to rule out any gastric ulcer as he needs to be on anticoagulation eventually CT scan suggested the patient may have duodenal perforation but CT scan was reviewed by general surgery Dr. Washburn and he does not feel that it is perforation Will discuss with General surgery regarding obtaining a Gastrografin study KUB done today does not show any free air (4) Gastric outlet obstruction: Code(s): K31.1 - Adult hypertrophic pyloric stenosis Status: Acute Assessment and Plan: I have discussed with the patient and he has agreed for replacement for NG tube. Place NG tube and rate to L IS (5) Portal vein thrombosis: Code(s): I81 - Portal vein thrombosis Status: Acute Assessment and Plan: Likely secondary to inflammation surrounding area Patient will need anticoagulation eventually but needs to rule out duodenal perforation, ulcer or inflammation 1st (6) Hypertriglyceridemia: Code(s): E78.1 - Pure hyperglyceridemia Status: Acute Assessment and Plan: Triglyceride level reviewed He is on insulin infusion (7) Esophageal varices: Code(s): I85.00 - Esophageal varices without bleeding Status: Acute Assessment and Plan: Patient likely has cirrhosis from fatty liver He denies any alcohol use (8) Ileus: Code(s): K56.7 - Ileus, unspecified Status: Acute Assessment and Plan: NPO NG tube in place (9) Electrolyte abnormality: Code(s): E87.8 - Other disorders of electrolyte and fluid balance, not elsewhere classified Status: Acute Assessment and Plan: Low potassium is being replaced Additional Plan DVT prophylaxis -SCDs Stress ulcer prophylaxis - on PPI drip Nutrition -NPO Code Status - Full Code Total Critical Care Time -30 minutes Due to a high probability of clinically significant, life threatening deterioration, the patient required my highest level of preparedness to intervene emergently and I personally spent this critical care time directly and personally managing the patient. This critical care time included obtaining a history; examining the patient; pulse oximetry; ordering and review of studies; arranging urgent treatment with development of a management plan; evaluation of patient's response to treatment; frequent reassessment; and discussions with other providers. It was exclusive of separately billable procedures and treating other patients and teaching time. 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
[2022-03-04 12:18] LABS: Anion Gap 9 mmol/L (8-16); Blood Urea Nitrogen 5 mg/dL (9-20); Calcium 8.6 mg/dL (8.4-10.2); Carbon Dioxide 12 mmol/L (22-30); Chloride 112 mmol/L (98-107); Estimated CRCL calculation 158 ml/min; Estimated Glomerular Filt Rate > 60; Glucose 240 mg/dL (65-110); Potassium 3.5 mmol/L (3.4-5.0); Sodium 133 mmol/L (137-145)
[2022-03-04 12:46] LABS: Glucose Point of Care 262 mg/dl (65-105)
[2022-03-04] MEDS: LACTATED RINGERS 1,000 ML 100 ML IV CONT ×2 (12:46→23:50)
[2022-03-04] MEDS: INSULIN GLARGINE (*BKC) 100 UNITS/ML 20 UNITS SUB-Q (12:49)
[2022-03-04] MEDS: LIDOCAINE 5% PATCH 1 PATCH TRANSDERM (13:05)
[2022-03-04] MEDS: HYDROmorphone HCL INJ (*CRX) 1 MG/ML SYR 0.5 MG IV PUSH (13:08)
--- NOTE | 2022-03-04 17:11 | WPDGICN ---
Assessment and Plan Assessment and plan (1) Necrotizing pancreatitis: Code(s): K85.91 - Acute pancreatitis with uninfected necrosis, unspecified Status: Acute Assessment and Plan: previous hospitalization also with pancreatitis and even pseudocyst, now with gastric oulet obstruction and duodenitis can not rule out small perforation surgery to see patient pending new imaging continue with npo status for now if ct negative then we can assess with egd (2) DKA (diabetic ketoacidosis): Code(s): E11.10 - Type 2 diabetes mellitus with ketoacidosis without coma Status: Acute Assessment and Plan: treated in icu, on insulin (3) Acute duodenitis: Code(s): K29.80 - Duodenitis without bleeding Status: Acute Assessment and Plan: complicated with pancreatitis and causing GOO (4) Gastric outlet obstruction: Code(s): K31.1 - Adult hypertrophic pyloric stenosis Status: Acute (5) Portal vein thrombosis: Code(s): I81 - Portal vein thrombosis Status: Acute Assessment and Plan: from complicated pancreatitis monitor, may need anticoagulation (6) Ileus: Code(s): K56.7 - Ileus, unspecified Status: Acute (7) Sepsis: Qualifiers: Sepsis type: sepsis due to unspecified organism Sepsis acute organ dysfunction status: without acute organ dysfunction Qualified Code(s): A41.9 - Sepsis, unspecified organism Code(s): A41.9 - Sepsis, unspecified organism Status: Acute Assessment and Plan: on treatment in icu GI Consult Note Consult date/time: 03/04/22 17:11 Reason for consult: acute on chronic pancreatitis, n/v, abdominal pain HPI: Michael Gomez is a 42 year old male with past medical history of uncontrolled diabetes mellitus with DKA only using oral medications, chronic pancreatitis/pancreatic insufficiency (I met him last year when he was admitted also for pancreatitis probably due to uncontrolled DM/elevated TG and had pseudocyst treated medically) here with worsening nausea, vomiting and abdominal pain.? He was recently admitted at [facility] and treated for acute pancreatitis and never had EGD, he eventually got frustrated and left AMA.?At home he had more abdominal pain and nausea vomiting, the pain was 10/10, intermittent radiating to back. He had CT of the abdomen and pelvis reviewed and showed gastric outlet obstruction with a dilated stomach, Severe narrowing of the main portal vein with nonocclusive portal venous thrombosis and evidence of portal venous hypertension, possible small duodenal perforation but CT scan was reviewed by general surgery Dr. Washburn and he does not feel that it is perforation, NG was placed and he had rapid drainage of 3 L of orange tinged gastric output, still NGT in place.?He is going to have another CT Scan now. Review of Systems Constitutional: Constitutional: Reports poor appetite Eyes: Eyes: Denies blurry vision ENT: Reports Normal hearing present Cardiovascular: Cardiovascular: Denies chest pain Respiratory: Respiratory: Denies chest congestion Gastrointestinal: Gastrointestinal: Reports abdominal pain, Reports nausea and Reports vomiting Musculoskeletal: Musculoskeletal: Reports back pain Integumentary/Breasts: Skin/Breast: Denies dry skin Neurologic: Denies Abnormal speech present Psychiatric: Psychiatric: Reports anxiety PMFSH Past Medical History Medical History Continuous tobacco abuse Diabetes mellitus Diabetic peripheral neuropathy Exocrine pancreatic insufficiency Hepatic steatosis Hypertriglyceridemia Pancreatic pseudocyst Pancreatitis With numerous admissions for recurrent pancreatitis thought to be related to hypertriglyceridemia and uncontrolled diabetes Splenomegaly Uncontrolled diabetes mellitus A1c 11.4 04/03/2021 Surgical History Surgical History (Reviewed 03/04/22 @
--- NOTE | 2022-03-04 17:12 | PM.IMPN ---
Progress Note: A&P Assessment and Plan (1) Necrotizing pancreatitis: Code(s): K85.91 - Acute pancreatitis with uninfected necrosis, unspecified Status: Acute Assessment and Plan: CT scans shows acute on chronic necrotizing pancreatitis. His lipase level is normal NPO Zosyn Pain control NG tube to [facility] GI and General surgery has been consulted (2) DKA (diabetic ketoacidosis): Code(s): E11.10 - Type 2 diabetes mellitus with ketoacidosis without coma Status: Acute Assessment and Plan: DKA protocol, improving, a1c = 11, (3) Acute duodenitis: Code(s): K29.80 - Duodenitis without bleeding Status: Acute Assessment and Plan: Continue PPI infusion GI consulted and patient will likely need EGD to rule out any gastric ulcer as he needs to be on anticoagulation eventually CT scan suggested the patient may have duodenal perforation but CT scan was reviewed by general surgery Dr. Washburn and he does not feel that it is perforation Will discuss with General surgery regarding obtaining a Gastrografin study KUB done today does not show any free air (4) Gastric outlet obstruction: Code(s): K31.1 - Adult hypertrophic pyloric stenosis Status: Acute Assessment and Plan: cont ngt for now (5) Portal vein thrombosis: Code(s): I81 - Portal vein thrombosis Status: Acute Assessment and Plan: Likely secondary to inflammation surrounding area Patient will need anticoagulation eventually but needs to rule out duodenal perforation, ulcer or inflammation 1st (6) Hypertriglyceridemia: Code(s): E78.1 - Pure hyperglyceridemia Status: Acute Assessment and Plan: Triglyceride level reviewed He is on insulin infusion (7) Esophageal varices: Code(s): I85.00 - Esophageal varices without bleeding Status: Acute Assessment and Plan: Patient likely has cirrhosis from fatty liver He denies any alcohol use (8) Ileus: Code(s): K56.7 - Ileus, unspecified Status: Acute Assessment and Plan: NPO NG tube in place (9) Electrolyte abnormality: Code(s): E87.8 - Other disorders of electrolyte and fluid balance, not elsewhere classified Status: Acute Assessment and Plan: Low potassium is being replaced Subjective Date/time seen: 03/04/22 17:12 Interval history: Patient resting comfortably, getting Dilaudid every few hours. States that his pain is finally under control. Had extensive conversation with family regarding diagnosis, treatment and prognosis. Patient denies chest pain or shortness of breath. No nausea vomiting or diarrhea. No fevers or chills. He states he feels better than yesterday. Review of Systems Review of Systems: All systems reviewed & are unremarkable except as noted in HPI and below (HPI) Exam Narrative: General: Patient resting comfortably in bed, no acute distress HEENT: Atraumatic, normocephalic, mucous membranes moist CV: Regular rate and rhythm, S1, S2, no murmurs rubs or gallops noted Lungs: Clear to auscultation bilaterally, no rales or crackles noted, no wheezes, good air entry Abdomen: Soft, nontender, nondistended Extremities: Normal to inspection, no edema noted Skin: No rashes noted, no lesions or wounds seen Objective Data Vital Signs Vital Signs: Vital Signs - 24 hr 03/03/22 18:51 03/03/22 19:02 03/03/22 19:16 Temperature 97.9 F Pulse Rate 116 H 109 H 121 H Respiratory Rate 16 29 H 27 H Blood Pressure 157/81 H Pulse Oximetry 100 100 99 Oxygen Delivery Room Air 03/03/22 19:38 03/03/22 19:45 03/03/22 19:46 Temperature Pulse Rate 117 H 121 H 120 H Respiratory Rate 27 H 26 H 31 H Blood Pressure 155/81 H Pulse Oximetry 100 100 100 Oxygen Delivery 03/03/22 20:00 03/03/22 20:01 03/03/22 20:18 Temperature Pulse Rate 119 H 118 H 119 H Respiratory Rate 25 H 27 H 24 H Blood Pressure 165/96 H Pulse Oxi
[2022-03-04 17:30] LABS: Glucose Point of Care 253 mg/dl (65-105)
[2022-03-04] MEDS: INSULIN ASPART (*BKC) 100 UNITS/ML SUB-Q ×3 (17:30→23:51)
--- NOTE | 2022-03-04 18:24 | PC.NURSE ---
This patient, Michael Gomez, was transferred to [ 202] on 03/04/22 at 1824. Personal belongings sent with patient. Report given to [ MANDI Huntley @ 3500]. Appropriate documentation sent with patient.
[2022-03-04 20:06] LABS: Glucose Point of Care 225 mg/dl (65-105)
--- NOTE | 2022-03-04 21:07 | PM.CNGS ---
Assessment and Plan Assessment and plan (1) Necrotizing pancreatitis: Code(s): K85.91 - Acute pancreatitis with uninfected necrosis, unspecified Status: Acute Assessment and Plan: Recurrent acute pancreatitis now with evidence of pancreatic necrosis as well as a right-sided abdominal mass and severe duodenitis. Patient has poor control of his diabetes may be causing hypertriglyceridemia and instigating the recurrent episodes of pancreatitis. At present, I do not see any indications for surgery. If evidence of infected pancreatic necrosis or pancreatic abscess, patient will need to transfer to tertiary care facility. I think he is quite ill from pancreatitis and may be developing a large pseudocyst in the right upper quadrant. Will follow along with you. (2) DKA (diabetic ketoacidosis): Code(s): E11.10 - Type 2 diabetes mellitus with ketoacidosis without coma Status: Acute Assessment and Plan: Improved and patient transferred out of the intensive care unit. (3) Gastric outlet obstruction: Code(s): K31.1 - Adult hypertrophic pyloric stenosis Status: Acute Assessment and Plan: Relative obstruction due to severe pancreatitis and duodenitis causing inability of gastric emptying. Continue NG suction. (4) Acute duodenitis: Code(s): K29.80 - Duodenitis without bleeding Status: Acute Assessment and Plan: Marked narrowing of the duodenal lumen on water-soluble contrast study today. Continue NPO. (5) Portal vein thrombosis: Code(s): I81 - Portal vein thrombosis Status: Acute Assessment and Plan: Will need to receive therapeutic anticoagulation once decision made regarding upper endoscopy. History of Present Illness Consult details Consult date: 03/04/22 Reason for consult: abdominal pain Narrative: Patient is a 42-year-old man with diabetes. He is non compliant with his diabetes and is had multiple episodes of pancreatitis. The etiology of his pancreatitis is thought to be due to elevated triglycerides. He was here a year ago with pancreatitis and left AMA after a few days of treatment. He was just at [place] about a week ago and left AMA from there. He came to the emergency room with diabetic ketoacidosis and severe pancreatitis with evidence of pancreatic necrosis. He had an extremely dilated stomach which, after NG placement, drained 3 L of orange fluid. His imaging also showed a complicated mass in the right side of the abdomen either pancreatitis or duodenitis. In the radiographic differential was perforated duodenum although no free air or significant free fluid was noted. The patient recently had a water-soluble upper GI which showed poor gastric emptying and severe duodenitis with only a trickle of contrast passing through the the duodenum. No evidence of extravasation was seen. his CT scan also showed portal vein thrombosis. He has evidence of splenomegaly and varices likely due from recurrent episodes of pancreatitis. Patient was seen this evening and does not really know how he feels. Further questioning suggest C neither feels better or worse. He was in the intensive care unit but now is on the intermediate care unit. His NG tube he is still in place. He is seen in consultation. Review of Systems Review of Systems: All systems reviewed & are unremarkable except as noted in HPI and below ( HPI.) ROS unobtainable: Yes unobtainable due to medical condition ( Patient possibly quite ill but not very cooperative with answering questi) and other ( Chart reviewed and further history gained in this manner.) [facility] Past Medical History Medical History Continuous tobacco abuse Diabetes mellitus Diabetic peripheral neuropathy Exocrine pancreatic insufficiency Hepatic steatosis Hypertriglyceridemia Pancreatic pseudocyst Pancreatitis With numerous admissions for recurrent pancre
[2022-03-04 23:43] LABS: Glucose Point of Care 253 mg/dl (65-105)
[2022-03-05] VITALS (11 sets, daily range): BP systolic 135–149; BP diastolic 74–89; PULSE 91–107; RESP 16–20; TEMP 36.5–36.9; O2SAT 97–98
[2022-03-05] MEDS: HYDROmorphone HCL INJ (*CRX) 1 MG/ML SYR IV PUSH ×4 (03:12→15:19)
[2022-03-05] MEDS: INSULIN ASPART (*BKC) 100 UNITS/ML SUB-Q ×3 (04:30→15:21)
[2022-03-05 04:38] LABS: Hematocrit 31.9 % (42.0-52.0); Hemoglobin 10.7 g/dL (14.0-18.0); Immature Platelet Fraction Pct 5.9 % (0.9-11.2); Mean Corpuscular HGB Conc 33.5 g/dl (32-36); Mean Corpuscular Hemoglobin 28.5 pg (26-34); Mean Corpuscular Volume 85.1 fl (80-100); Mean Platelet Volume 10.7 fl (7.4-10.4); Platelet Count Result 121 k/mm3 (150-375); Red Blood Count 3.75 M/mm3 (4.6-6.20); Red Cell Distribution Width 15.2 % (11.5-14.5); White Blood Count 4.4 K/mm3 (4.5-10.0)
[2022-03-05 04:48] LABS: Alanine Aminotransferase 66 U/L (6-50); Alkaline Phosphatase 265 U/L (38-126); Anion Gap 11 mmol/L (8-16); Aspartate Amino Transferase 60 U/L (17-59); Bilirubin,Total 5.2 mg/dL (0.2-1.3); Blood Urea Nitrogen 7 mg/dL (9-20); Calcium 8.5 mg/dL (8.4-10.2); Carbon Dioxide 19 mmol/L (22-30); Chloride 104 mmol/L (98-107); Estimated CRCL calculation 158 ml/min; Estimated Glomerular Filt Rate > 60; Glucose 240 mg/dL (65-110); Magnesium 2.2 mg/dL (1.6-2.3); Sodium 134 mmol/L (137-145)
[2022-03-05 04:51] LABS: Phosphorus 1.1 mg/dL (2.5-4.5)
[2022-03-05] MEDS: ONDANSETRON INJ 4 MG/2 ML VIAL IV PUSH ×3 (05:44→15:19)
[2022-03-05 08:16] LABS: Glucose Point of Care 254 mg/dl (65-105)
[2022-03-05 08:42] LABS: Lipase 56 U/L (23-300)
[2022-03-05] MEDS: LIDOCAINE 5% PATCH 1 PATCH TRANSDERM (08:46)
[2022-03-05] MEDS: POTASSIUM/PHOSPHORUS/SODIUM 1.5 GM PACKET 1 PACKET PO (08:47)
[2022-03-05] MEDS: HYDROmorphone HCL INJ (*CRX) 1 MG/ML SYR 0.5 MG IV PUSH ×2 (08:47→11:46)
--- NOTE | 2022-03-05 09:10 | PM.PNGS ---
Progress Note: A&P Assessment and Plan (1) Necrotizing pancreatitis: Code(s): K85.91 - Acute pancreatitis with uninfected necrosis, unspecified Status: Acute Assessment and Plan: Continues to require pain medicine about every 2 hours. Right upper quadrant mass persists. Suspect this is a developing pseudocyst. Probably should repeat CT scan in 1-2 days. This area is most likely causing the duodenal inflammation and gastric outlet obstruction. Would consider TPN as I doubt the patient will be able to eat any time soon. (2) Gastric outlet obstruction: Code(s): K31.1 - Adult hypertrophic pyloric stenosis Status: Acute Assessment and Plan: Continue NG tube, would not feed as I feel this obstruction is likely due to pancreatitis and possibly developing pancreatic pseudocyst with right upper quadrant mass. (3) Acute duodenitis: Code(s): K29.80 - Duodenitis without bleeding Status: Acute (4) Portal vein thrombosis: Code(s): I81 - Portal vein thrombosis Status: Acute Assessment and Plan: Okay to anticoagulate from surgical standpoint although need to check with GI as far as plans for endoscopy. Subjective Subjective Date/Time Seen: 03/05/22 09:10 Patient reports: still having pain and afebrile Review of Systems Review of Systems: All systems reviewed & are unremarkable except as noted in HPI and below Constitutional: Constitutional: Denies chills, Denies fever(s) and Reports poor appetite Cardiovascular: Cardiovascular: Denies chest pain and Denies dyspnea Respiratory: Respiratory: Denies cough and Denies dyspnea Gastrointestinal: Gastrointestinal: Reports as per HPI Exam Const: General: no acute distress, alert and awake Nutritional Appearance: average body habitus GI: Inspection: normal to inspection and non-distended GI Palp: Yes Firmness to palpation present (GI), Yes Tenderness to palpation present (GI) (Upper abdomen) and Yes Palpable mass present (Right upper quadrant mass as before, slightly less prominent) Auscultation: absent bowel sounds Objective Data Vital Signs Vital Signs: Vital Signs - 24 hr 03/04/22 10:00 03/04/22 10:00 03/04/22 12:00 Temperature 36.8 C Pulse Rate 104 H 104 H 103 H Respiratory Rate 16 22 H Blood Pressure 147/85 H 136/63 Pulse Oximetry 100 99 Oxygen Delivery 03/04/22 12:00 03/04/22 14:00 03/04/22 14:00 Temperature Pulse Rate 98 98 98 Respiratory Rate 14 Blood Pressure 135/73 Pulse Oximetry 100 Oxygen Delivery 03/04/22 16:00 03/04/22 18:00 03/04/22 16:00 Temperature 36.8 C Pulse Rate 102 H 99 100 Respiratory Rate 14 Blood Pressure 142/74 H Pulse Oximetry 100 Oxygen Delivery 03/04/22 20:00 03/04/22 20:00 03/04/22 20:00 Temperature 36.6 C Pulse Rate 105 H 101 H 101 H Respiratory Rate 20 20 Blood Pressure 123/66 Pulse Oximetry 100 100 Oxygen Delivery Room Air 03/04/22 22:00 03/04/22 23:31 03/05/22 00:00 Temperature 36.6 C Pulse Rate 96 98 107 H Respiratory Rate 18 Blood Pressure 141/70 H Pulse Oximetry 97 Oxygen Delivery 03/05/22 00:00 03/05/22 02:00 03/05/22 04:00 Temperature Pulse Rate 107 H 100 102 H Respiratory Rate 18 Blood Pressure Pulse Oximetry 97 Oxygen Delivery Room Air 03/05/22 04:00 03/05/22 04:00 03/05/22 06:00 Temperature 36.7 C Pulse Rate 102 H 97 100 Respiratory Rate 18 18 Blood Pressure 140/74 Pulse Oximetry 97 97 Oxygen Delivery Room Air 03/05/22 08:00 Temperature 36.9 C Pulse Rate 97 Respiratory Rate 18 Blood Pressure 139/74 Pulse Oximetry 98 Oxygen Delivery Intake/Output Intake/Output: Intake & Output 03/02/22 03/03/22 03/04/22 03/05/22 23:59 23:59 23:59 23:59 Intake Total 3100 5031.4 100 Output Total 600 5800 2050 Balance 4649 -768.6 -9943 Meds/Results Medications: Active Medications Generic Name Dose Route Start Last Admin Trade N
[2022-03-05 10:26] LABS: Lactic Acid Reflex 0.7 mmol/L (0.7-2.0)
[2022-03-05 10:30] LABS: INR 1.2; Prothrombin Time 14.7 Seconds (11.1-14.7)
[2022-03-05 10:31] LABS: CRP 6.3 mg/dL (<1.0)
[2022-03-05] MEDS: LACTATED RINGERS 1,000 ML 100 ML IV CONT ×2 (11:02→12:41)
[2022-03-05 11:08] LABS: Procalcitonin 0.5 ng/mL
[2022-03-05 12:01] LABS: Glucose Point of Care 262 mg/dl (65-105)
--- NOTE | 2022-03-05 13:12 | PCNFU ---
Nutrition Follow-Up Complete: Altered GI function as related to pancreatitis as evidenced by NPO Goal: Meet estimated nutritional needs Pt current nutrition is NPO. Nutrition recommendation: Advance diet when medically appropriate or initiate alternative nutrition support Last recorded weight is 85.1 kg - stable. Bowel Motility: hypoactive bowel sounds, no BM recorded Labs Reviewed: Hgb:10.1, HCT:31.9, Alb:3.0, NA:134, K:3.0, glu:240 Meds Noted: lantus, novolog, Lactated ringers Skin: WNL Additional Notes: Pt remains with NGT to suction. NPO for diet. No plans for diet advancement at this time. Recommendation should PPN be started: Clnimix 4.25/5 @ 80ml/hr to provide 1153kcals, 82g protein. This will meet 50% of pt's caloric needs and 100% of protein needs. Will monitor and follow up in 3 days.
--- NOTE | 2022-03-05 13:13 | WPDANESEPPF ---
Anes - Initial Pre Proc Eval Procedure: Operation Date: 03/05/22 13:45 Proposed Procedures p Esophagogastroduodenoscopy - Terry Sterling MD Date/Time: 03/05/22 13:13 Surgeon: Ruba Briscoe DO Pre Op Diagnosis: DKA, duodenitis, pancreatitis Patient Data Age: 42 Gender: M Height: 1.73 m Weight: 85.1 kg Last Vital Signs Temp 36.5 C 03/05/22 12:30 Pulse 91 03/05/22 12:30 Resp 20 03/05/22 12:30 BP 149/80 H 03/05/22 12:30 Pulse Ox 98 03/05/22 12:30 O2 Del Method Room Air 03/05/22 12:30 Allergies Allergy/AdvReac Type Severity Reaction Status Date / Time No Known Drug Allergies Allergy Unknown Other Verified 03/05/22 12:06 Home Medications Medication Instructions Recorded Confirmed Type ergocalciferol (vitamin D2) 1,250 1 cap PO WEEKLY 03/04/22 03/04/22 History mcg (50,000 unit) capsule fenofibrate nanocrystallized 145 1 tablet PO DAILY 03/04/22 03/04/22 History mg tablet glimepiride 4 mg tablet 1 tablet PO DAILY 03/04/22 03/04/22 History omeprazole 40 mg capsule,delayed 1 cap PO DAILY 03/04/22 03/04/22 History release ondansetron 4 mg disintegrating 1 tablet PO BID 03/04/22 03/04/22 History tablet tramadol 50 mg tablet 1 tablet PO Q6-12H PRN Pain 03/04/22 03/04/22 History Laboratory Tests 03/04/22 03/04/22 03/04/22 17:27 19:46 23:19 WBC RBC Hgb Hct MCV MCH MCHC RDW Plt Count MPV % Immature Plt Fraction PT INR Sodium Potassium Chloride Carbon Dioxide Anion Gap BUN Creatinine Estim Creat Clear Calc Estimated GFR Glucose POC Capillary Glucose 253 mg/dl H mg/dl 225 mg/dl H mg/dl 253 mg/dl H mg/dl (65-105) (65-105) (65-105) Lactic Acid Calcium Phosphorus Magnesium Total Bilirubin AST ALT Alkaline Phosphatase C-Reactive Protein Total Protein Albumin Lipase Procalcitonin 03/05/22 03/05/22 03/05/22 04:06 04:09 04:09 WBC 4.4 K/mm3 L K/mm3 (4.5-10.0) RBC 3.75 M/mm3 L M/mm3 (4.6-6.20) Hgb 10.7 g/dL L g/dL (14.0-18.0) Hct 31.9 % L % (42.0-52.0) MCV 85.1 fl D fl (80-100) MCH 28.5 pg pg (26-34) MCHC 33.5 g/dl g/dl (32-36) RDW 15.2 % H % (11.5-14.5) Plt Count 121 k/mm3 L k/mm3 (150-375) MPV 10.7 fl H fl (7.4-10.4) % Immature Plt Fraction 5.9 % % (0.9-11.2) PT INR Sodium 134 mmol/L L mmol/L (137-145) Potassium 3.0 mmol/L L mmol/L (3.4-5.0) Chloride 104 mmol/L mmol/L (98-107) Carbon Dioxide 19 mmol/L L mmol/L (22-30) Anion Gap 11 mmol/L mmol/L (8-16) BUN 7 mg/dL L mg/dL (9-20) Creatinine 0.50 mg/dL L mg/dL (0.7-1.3) Estim Creat Clear Calc 158 ml/min ml/min Estimated GFR > 60 (59 - ) Glucose 240 mg/dL H mg/dL (65-110) POC Capillary Glucose Lactic Acid Calcium 8.5 mg/dL mg/dL (8.4-10.2) Phosphorus Magnesium 2.2 mg/dL mg/dL (1.6-2.3) Total Bilirubin 5.2 mg/dL H mg/dL (0.2-1.3) AST 60 U/L H U/L (17-59) ALT 66 U/L H U/L (6-50) Alkaline Phosphatase 265 U/L H U/L (38-126) C-Reactive Protein Total Protein 6.0 g/dL L g/dL (6.3-8.2) Albumin 3.0 g/dL L g/dL (3.5-5.1) Lipase 56 U/L U/L (23-300) Procalcitonin 03/05/22 03/05/22 03/05/22 04:09 07:53 09:58 WBC
--- NOTE | 2022-03-05 14:45 | SUR.PHASEII ---
Per Dr. Gaytan, patients NG tube placed on low/intermittent suction.
[2022-03-05 15:21] LABS: Glucose Point of Care 260 mg/dl (65-105)
--- NOTE | 2022-03-05 16:40 | PC.NURSE ---
Patient left against medical advice. Dr. Lambert was notified and explained the risks to the patient bedside. NG and IV's were removed.
--- NOTE | 2022-03-11 11:17 | PM.DS ---
DS: Admitting Diagnosis Discharge Date 03/05/22 Admitting Diagnosis Acute necrotizing pancreatitis with sepsis DKA Duodenitis with gastric outlet obstruction Portal vein thrombosis DS: Discharge Diagnosis Discharge Diagnosis (1) Necrotizing pancreatitis: Code(s): K85.91 - Acute pancreatitis with uninfected necrosis, unspecified Status: Acute Assessment and Plan: CT scans shows acute on chronic necrotizing pancreatitis. His lipase level is normal NPO Zosyn Pain control NG tube to [facility] and General surgery has been consulted (2) DKA (diabetic ketoacidosis): Code(s): E11.10 - Type 2 diabetes mellitus with ketoacidosis without coma Status: Acute Assessment and Plan: DKA protocol, improving, a1c = 11, (3) Acute duodenitis: Code(s): K29.80 - Duodenitis without bleeding Status: Acute Assessment and Plan: Continue PPI infusion GI consulted and patient will likely need EGD to rule out any gastric ulcer as he needs to be on anticoagulation eventually CT scan suggested the patient may have duodenal perforation but CT scan was reviewed by general surgery Dr. Washburn and he does not feel that it is perforation Will discuss with General surgery regarding obtaining a Gastrografin study KUB done today does not show any free air (4) Gastric outlet obstruction: Code(s): K31.1 - Adult hypertrophic pyloric stenosis Status: Acute Assessment and Plan: cont ngt for now (5) Portal vein thrombosis: Code(s): I81 - Portal vein thrombosis Status: Acute Assessment and Plan: Likely secondary to inflammation surrounding area Patient will need anticoagulation eventually but needs to rule out duodenal perforation, ulcer or inflammation 1st (6) Hypertriglyceridemia: Code(s): E78.1 - Pure hyperglyceridemia Status: Acute Assessment and Plan: Triglyceride level reviewed He is on insulin infusion (7) Esophageal varices: Code(s): I85.00 - Esophageal varices without bleeding Status: Acute Assessment and Plan: Patient likely has cirrhosis from fatty liver He denies any alcohol use (8) Ileus: Code(s): K56.7 - Ileus, unspecified Status: Acute Assessment and Plan: NPO NG tube in place (9) Electrolyte abnormality: Code(s): E87.8 - Other disorders of electrolyte and fluid balance, not elsewhere classified Status: Acute Assessment and Plan: Low potassium is being replaced DS: Summary Hospital Course Hospital Course: 42-year-old male with past medical history significant for uncontrolled diabetes mellitus chronic pancreatitis with pancreatic insufficiency and possible prior pseudocyst hypertriglyceridemia and GERD is presenting to the ER with significant abdominal pain with nausea and vomiting for the last week or so. He states he was recently hospitalized at [facility] for about a week ago for acute pancreatitis. He was made NPO for possible EGD but left AMA when this was not done in a timely manner. Since leaving that facility, he has had significant vomiting as well as black emesis. In the ER, CT abdomen and pelvis was done that showed portal venous thrombosis with portal venous hypertension, dilated stomach with gastric outlet obstruction and was made NPO and an NG tube was placed producing 3 L of orange changed gastric output immediately.He was admitted to the ICU with critical care consultation and immediately pulled out his NG tube upon arrival. He refused to have it replaced. As abdominal pain worsened, he did permit the NG tube to be replaced. He was noted to have significant hyperglycemia and acidosis and was started on DKA protocol. He was made NPO and given high volume fluid resuscitation. He was noted to be hypokalemic and this was replaced per protocol. Insulin drip was initiated and eventually transitioned to Lantus with sliding scale. A1c was don
== END 2022-03-05 16:36 | disposition left against medical advice (07) | DRG 720 ==
LOC: ANHED 22:08 → ANHICU 03-04 00:16 → ANHIMU 03-04 18:18
PROVIDERS: Internal Medicine; Internal Medicine Gastroenterology; Student in an Organized Health Care Education/Training Program; Admitting Provider Internal Medicine; Emergency Provider Emergency Medicine; PCP Internal Medicine Gastroenterology; Visit Provider Internal Medicine
PROC: 0DJ08ZZ Inspection of Upper Intestinal Tract, Via Natural or Artificial Opening Endoscopic (ICD-10-PCS; CPT 43235; principal; 2022-03-05 13:45)
DX: A41.89 Other specified sepsis (principal); K85.91 Acute pancreatitis with uninfected necrosis, unspecified; E11.10 Type 2 diabetes mellitus with ketoacidosis without coma; K86.1 Other chronic pancreatitis; K29.80 Duodenitis without bleeding; K26.1 Acute duodenal ulcer with perforation; K29.50 Unspecified chronic gastritis without bleeding; K31.1 Adult hypertrophic pyloric stenosis; K31.9 Disease of stomach and duodenum, unspecified; K86.3 Pseudocyst of pancreas; I81 Portal vein thrombosis; I85.00 Esophageal varices without bleeding; K74.60 Unspecified cirrhosis of liver; K76.0 Fatty (change of) liver, not elsewhere classified; E78.1 Pure hyperglyceridemia; E87.8 Other disorders of electrolyte and fluid balance, not elsewhere classified; K21.9 Gastro-esophageal reflux disease without esophagitis; E11.42 Type 2 diabetes mellitus with diabetic polyneuropathy; F17.210 Nicotine dependence, cigarettes, uncomplicated; E87.6 Hypokalemia
CPT/HCPCS: 36415; 36600; 71045; 74018; 74177; 74240; 76705; 80048; 80053; 80076; 80307; 81001; 82010; 82375; 82805; 82948; 83036; 83050; 83605; 83690; 83735; 84100; 84145; 84478; 85025; 85027; 85055; 85610; 85730; 86140; 87040; 87076; 87077; 87185; 88305; 93005; 96361; 96365; 96366; 96367; 96368; 96374; 96375; 96376; 99285; A9270; C9113; G0378; J0743; J1170; J1815; J2270; J2405; J2543; J2550; J2704; J3480; J7030; J7040; J7060; J7120; Q9967

== ENCOUNTER 2024-12-26 13:03 | Emergency (ER) | payer MEDICARE, SELFPAY ==
[2024-12-26 13:19] VITALS: BP 132/84; PULSE 106; RESP 19; TEMP 37.1; O2SAT 100
--- NOTE | 2024-12-26 13:32 | ED.EXTPRO ---
HPI - Extremity Problem General Chief complaint: Extremity Problem,Nontraumatic Stated complaint: Left hand Thumb Pain Time Seen by Provider: 12/26/24 13:25 Source: patient and RN notes reviewed Mode of arrival: ambulatory Limitations: no limitations History of Present Illness HPI Narrative: Patient presents today complaining of pain and collection of pus to the left thumb nail fold x5 days. States prior to this he had been to in his cuticle. Symptoms have been worsening since onset. No [id number] treatment prior to arrival. History of uncontrolled diabetes, though patient states he has been using his insulin appropriately. Related Data Home Medications ?Medication ?Instructions ?Recorded ?Confirmed ?Last Taken ?Type ergocalciferol (vitamin D2) 1,250 1 cap PO WEEKLY 03/04/22 03/04/22 Unknown History mcg (50,000 unit) capsule fenofibrate nanocrystallized 145 1 tablet PO DAILY 03/04/22 03/04/22 Unknown History mg tablet glimepiride 4 mg tablet 1 tablet PO DAILY 03/04/22 03/04/22 Unknown History omeprazole 40 mg capsule,delayed 1 cap PO DAILY 03/04/22 03/04/22 Unknown History release ondansetron 4 mg disintegrating 1 tablet PO BID 03/04/22 03/04/22 Unknown History tablet [facility] 12/26/24 12/26/24 Unknown History Ultra Test strips) insulin aspart U-100 100 unit/mL subcut 12/26/24 Unknown History (3 mL) subcutaneous pen insulin regular hum U-500 conc 500 unit subcut 12/26/24 Unknown History unit/mL(3 mL) subcut pen (Humulin R U-500 (Conc) Insulin Kwikpen) lancets 33 gauge (OneTouch Delica 12/26/24 12/26/24 Unknown History Plus Lancet) oxycodone 10 mg tablet mg 12/26/24 Unknown History rosuvastatin 10 mg tablet mg 12/26/24 Unknown History sildenafil 100 mg tablet mg 12/26/24 Unknown History trazodone 100 mg tablet mg 12/26/24 Unknown History Allergies Allergy/AdvReac Type Severity Reaction Status Date / Time No Known Drug Allergies Allergy Unknown Other Verified 12/26/24 13:13 Review of Systems Review of Systems: CONSTITUTIONAL: Denies body aches, fever, chills, or sweats. EYES: Denies visual changes, redness, or discharge. ENT: Denies rhinorrhea, congestion, sore throat, or otalgia. CARDIOVASCULAR: Denies chest pain, palpitations, or edema. RESPIRATORY: Denies cough or dyspnea. GASTROINTESTINAL: Denies abdominal pain, nausea, vomiting, or diarrhea. GENITOURINARY: Denies dysuria or hematuria. SKIN: + left thumb infection MUSCULOSKELETAL: Denies back pain, joint pain, or myalgia. NEUROLOGIC: Denies headache, numbness, tingling, or weakness. PSYCH: Denies depression or anxiety. [facility] Past Medical History Medical History Continuous tobacco abuse Diabetic peripheral neuropathy Exocrine pancreatic insufficiency Hypertriglyceridemia Uncontrolled diabetes mellitus A1c 11.4 04/03/2021 Pancreatic pseudocyst Hepatic steatosis Splenomegaly Pancreatitis With numerous admissions for recurrent pancreatitis thought to be related to hypertriglyceridemia and uncontrolled diabetes Diabetes mellitus Surgical History Surgical History History of endoscopy Family History Family History Father Family history of diabetes mellitus in first degree relative Family history of heart disease in male family member before age 55 Grandparent Family history of heart disease in male family member before age 55 Diabetes mellitus Sibling Family history of heart disease in male family member before age 55 Patient's brother is Son Type 1 diabetes Social History Social History Social History: He lives at home with his selenae and their [id number] child. He has smoked up to 2 packs of cigarettes per day but is currently smoking 1.5 packs per day. He started smoking at age 22. He denies any significant alcohol use. He denies illicit substance use. He has a 19-year-old son and a 17-year-old son who live out of state. 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 Please see nursing chart for further information. There is no relevant family history pertinent to the presenting complaint Exam Narrative: GENERAL: Well-appearing, well-nourished, and in no acute distress. HEAD: Normocephalic, atraumatic. EYES: EOMI. No redness or drainage. Conjunctivae normal. ENT: Mucous membranes pink and moist. NECK: Normal AROM. CHEST: No respiratory distress. EXTREMITIES: Left thumb: Small collection of bright green purulent discharge to the nail fold. No subungual abscess. SKIN: Warm, dry, no rash. Capillary refill normal. Normal skin turgor. NEURO: No focal deficits. Alert and oriented x3. Gait steady. PSYCH: Normal affect. No signs of depression or anxiety. Course Course Level of Care: Express Care Visit Vital Signs Vital signs: Vital Signs Temperature 98.7 F 12/26/24 13:19 Pulse Rate 106 H 12/26/24 13:19 Respiratory Rate 12/26/24 13:19 Blood Pressure 132/84 12/26/24 13:19 Pulse Oximetry 100 12/26/24 13:19 Oxygen Delivery Room Air 12/26/24 13:19 Temperature 98.7 F 12/26/24 13:19 Pulse Rate 106 H 12/26/24 13:19 Respiratory Rate 12/26/24 13:19 Blood Pressure 132/84 12/26/24 13:19 Pulse Oximetry 100 12/26/24 13:19 Oxygen Delivery Room Air 12/26/24 13:19 Reviewed Procedures Abscess I/D hand: Date of Incision: 12/26/24 Time of Incision: 13:40 Side (if applicable): left (Thumb) Local Anesthetic: none Technique: incised with #11 blade Amount of fluid expressed (mL): 0 (Small amount) Irrigation: No Packing used?: none I&D Results: Pus Abcess I&D Additional Comments: Patient tolerated procedure well. Dressed with Band-Aid. Critical Care Time Critical Care Time Critical Care Time: No Discharge Plan Discharge Clinical Impression: Paronychia Patient Disposition: Home Condition: Stable Instructions: Antibiotic Form, Paronychia (ED) Additional Instructions: Your abscess has been drained. Keep covered until scabbed over. Wash once a day with soap and water. Do not submerge your hand in standing water such as pools, hot tubs, or sinks until scabbed over. Take the antibiotics as prescribed until gone. Follow-up with your PCP with any additional concerns. Your blood pressure was elevated above 120/80 today at Urgent Care. This puts you above the threshold for follow up. Please schedule a followup visit with your personal physician as soon as possible, for further evaluation and treatment. Even blood pressure exceeding 120/80 may indicate pre-hypertension. Patient Language: Kenyan Prescriptions: New cephalexin 500 mg capsule 500 mg PO Q6H 7 Days Qty: 28 0RF No Action (DME) OneTouch Ultra Test Strip MISCELLANEOUS sildenafil 100 mg tablet trazodone 100 mg tablet insulin aspart U-100 100 unit/mL (3 mL) insulin pen SUBCUT rosuvastatin 10 mg tablet oxycodone 10 mg tablet (DME) lancets [OneTouch Delica Plus Lancet] 33 gauge misc MISCELLANEOUS Humulin R U-500 (Conc) Kwikpen 500 unit/mL (3 mL) insulin pen SUBCUT omeprazole 40 mg capsule,delayed release(DR/EC) 1 cap PO DAILY glimepiride 4 mg tablet 1 tablet PO DAILY ergocalciferol (vitamin D2) 1,250 mcg (50,000 unit) capsule 1 cap PO WEEKLY Rx Instructions: Weekly on wednesdays ondansetron 4 mg tablet,disintegrating 1 tablet PO BID fenofibrate nanocrystallized 145 mg tablet 1 tablet PO DAILY Follow-up/Referrals: Tom,Luli Shaw MD [Primary Care Provider] - Time of Disposition: 13:44
== END 2024-12-26 13:50 | disposition home or self-care (01) ==
PROVIDERS: Emergency Provider Nurse Practitioner; PCP Internal Medicine Gastroenterology
DX: L03.012 Cellulitis of left finger (principal); E11.42 Type 2 diabetes mellitus with diabetic polyneuropathy; Z79.4 Long term (current) use of insulin; Z79.84 Long term (current) use of oral hypoglycemic drugs; E78.1 Pure hyperglyceridemia; K76.0 Fatty (change of) liver, not elsewhere classified; F17.210 Nicotine dependence, cigarettes, uncomplicated
CPT/HCPCS: 10060; 99213; G0463